=== PATIENT | female | born 1970 | race Caucasian/White ===

== ENCOUNTER 2018-04-26 19:44 | Emergency (ER) | payer OTHER ==
[~2018-04-26] VITALS: Ht 157.5 cm; Wt 136.1 kg
[~2018-04-26 19:44] MED LIST: ALBU.083IS IH; ALBU90OI INH; AMOX500 PO; ASPI81CH PO; AZIT250 PO; Bactrim Ds Tab1 EACH PO; CODGUAEL PO; Cleocin HCl150 MG PO; DOXY100 PO; Diflucan100 MG PO; FLUO10 PO; FLUT.05NI; HYDCHL25 PO; HYDR1TAB94 PO; METO50 PO; Norco 5-325 Ta1 EACH PO; Nystop60 GM TP; PRED10 PO; PRED20 PO; PROCODE120 PO; Prinivil10 MG; Protonix40 MG PO; RXCODGUASY PO; TRIHYD253A PO; TRIHYD253B PO; VENL37.5 PO; Zofran8 MG PO; [UNRECOGNIZED DRUG - REMARK]
[2018-04-26 20:05] LABS: BASOPHILS ABSOLUTE AUTO 0.03 K/mm3 (0.00-0.23); BASOPHILS PERCENT AUTO 0 % (0-2); EOSINOPHILS ABSOLUTE AUTO 0.27 K/mm3 (0.00-0.68); EOSINOPHILS PERCENT AUTO 2 % (0-6); Hematocrit 45.8 % (33.0-51.0); Hemoglobin 14.6 g/dL (11.5-16.0); IMMATURE GRAN ABSOLUTE AUTO 0.03 K/mm3 (0.00-0.10); IMMATURE GRAN PERCENT AUTO 0 % (0-1); LYMPHOCYTES ABSOLUTE AUTO 2.97 K/mm3 (0.84-5.20); LYMPHOCYTES PERCENT AUTO 25 % (21-46); MONOCYTES ABSOLUTE AUTO 0.74 K/mm3 (0.16-1.47); MONOCYTES PERCENT AUTO 6 % (4-13); Mean Corpuscular HGB 28.6 pg (26.0-34.0); Mean Corpuscular HGB Conc 31.9 g/dL (31.5-36.5); Mean Corpuscular Volume 90 fL (80-100); Mean Platelet Volume 10.1 fL (9.1-12.4); NEUTROPHILS PERCENT AUTO 66 % (41-73); Platelet Count 332 K/mm3 (150-400); RDW Coefficient Variation 12.6 % (11.7-14.2); White Blood Cell Count 11.84 K/mm3 (4.00-11.30)
[2018-04-26 20:16] LABS: International Normalized Ratio 1.01; Prothrombin Time Results 10.4 Sec (9.7-11.5)
[2018-04-26 20:41] LABS: Alanine Aminotransfer (ALT/SGP 20 U/L (12-78); Albumin, Blood 3.6 g/dL (3.4-5.0); Albumin/Globulin Ratio 0.9 (0.8-1.8); Alk Phos 110 U/L (50-136); Anion Gap 5 mmol/L (6-16); Aspartate Aminotrans (AST/SGOT 12 U/L (12-37); Bilirubin, Total 0.2 mg/dL (0.1-1.0); Blood Urea Nitrogen 24 mg/dL (8-24); Bun/Creatinine Ratio 19.8 (12.0-20.0); CO2, Blood 31 mmol/L (21-32); Calcium, Blood 9.3 mg/dL (8.5-10.1); Chloride, Blood 103 mmol/L (98-108); Creatinine, Blood 1.21 mg/dL (0.40-1.00); Globulin, Blood 4.2 g/dL (2.2-4.0); Glomerular Filtration Rate 50 (60-); Glucose, Blood 105 mg/dL (70-99); Potassium, Blood 3.8 mmol/L (3.5-5.5); Sodium, Blood 139 mmol/L (136-145); Total Protein, Blood 7.8 g/dL (6.4-8.2); Troponin I <0.015 ng/mL (0.000-0.040)
[2018-04-26] MEDS ORDERED: Metoprolol Tar100 MG PO (21:23)
[2018-04-26] MEDS ORDERED: Prozac20 MG PO (21:23)
[2018-04-26] MEDS ORDERED: Dyazide 37.5-21 EACH PO (21:24)
[2018-04-26] MEDS ORDERED: LOSA50 PO (21:25)
[2018-04-26] MEDS ORDERED: BUSP10 PO (21:26)
== END 2018-04-26 22:50 | disposition home or self-care (01) ==
LOC: ER 19:44
PROVIDERS: Emergency Medicine
DX: R07.9 Chest pain, unspecified (principal); I10 Essential (primary) hypertension; J45.909 Unspecified asthma, uncomplicated; Z88.8 Allergy status to other drugs, medicaments and biological substances; Z79.899 Other long term (current) drug therapy
CPT/HCPCS: 36415; 71046; 80053; 84484; 85025; 85610; 93005; 93010; 99285-25

== ENCOUNTER 2019-02-15 23:13 | Emergency (ER) | payer OTHER ==
[~2019-02-15] VITALS: Ht 160 cm; Wt 129.3 kg
[~2019-02-15 23:13] MED LIST changes: +BUSP10 PO; +Dyazide 37.5-21 EACH PO; +LOSA50 PO; +Metoprolol Tar100 MG PO; +Prozac20 MG PO
== END 2019-02-16 02:35 | disposition home or self-care (01) ==
LOC: ER 23:13
DX: S91.322A Laceration with foreign body, left foot, initial encounter (principal); Z88.2 Allergy status to sulfonamides; Z88.8 Allergy status to other drugs, medicaments and biological substances; Z79.899 Other long term (current) drug therapy; I10 Essential (primary) hypertension; J45.909 Unspecified asthma, uncomplicated; W22.8XXA Striking against or struck by other objects, initial encounter
CPT/HCPCS: 12001; 73620; 99283-25

== ENCOUNTER 2019-02-18 15:06 | Emergency (ER) | payer OTHER ==
[~2019-02-18] VITALS: Ht 160 cm; Wt 127.0 kg
== END 2019-02-18 16:22 | disposition home or self-care (01) ==
LOC: ER 15:06
DX: S91.311A Laceration without foreign body, right foot, initial encounter (principal); X58.XXXA Exposure to other specified factors, initial encounter; Z88.2 Allergy status to sulfonamides; Z88.8 Allergy status to other drugs, medicaments and biological substances; Z79.899 Other long term (current) drug therapy; I10 Essential (primary) hypertension; J45.909 Unspecified asthma, uncomplicated
CPT/HCPCS: 12001; 99282-25

== ENCOUNTER 2019-03-01 20:40 | Emergency (ER) | payer OTHER ==
[~2019-03-01] VITALS: Ht 160 cm; Wt 129.3 kg
[2019-03-01] MEDS ORDERED: KETO10 PO (21:57)
== END 2019-03-01 22:35 | disposition home or self-care (01) ==
LOC: ER 20:40
DX: M17.11 Unilateral primary osteoarthritis, right knee (principal); I10 Essential (primary) hypertension; J45.909 Unspecified asthma, uncomplicated; Z88.2 Allergy status to sulfonamides; Z79.899 Other long term (current) drug therapy
CPT/HCPCS: 73562-RT; 99283-25; A9270; A9270-GY

== ENCOUNTER → 2019-05-29 | Outpatient (CLI) | payer OTHER ==
[~2019-05-29] MED LIST changes: +KETO10 PO
[2019-05-31 15:07] LABS: HPV 16 Negative (Negative); HPV 18 Negative (Negative); HPV OTHER HR TYPES Negative (Negative)
== END | disposition home or self-care (01) ==
LOC: LAB 19:40 → LAB SHORT 19:40
PROVIDERS: Physician Assistant
DX: Z01.419 Encounter for gynecological examination (general) (routine) without abnormal findings (principal)
CPT/HCPCS: 87624; G0123

== ENCOUNTER 2019-09-27 00:17 | Emergency (ER) | payer OTHER ==
[~2019-09-27] VITALS: Ht 160 cm; Wt 145.2 kg
== END 2019-09-27 03:56 | disposition home or self-care (01) ==
LOC: ER 00:17
DX: S81.811A Laceration without foreign body, right lower leg, initial encounter (principal); J40 Bronchitis, not specified as acute or chronic; J06.9 Acute upper respiratory infection, unspecified; I10 Essential (primary) hypertension; Z88.2 Allergy status to sulfonamides; Z79.899 Other long term (current) drug therapy; W45.8XXA Other foreign body or object entering through skin, initial encounter
CPT/HCPCS: 12001; 99282

== ENCOUNTER 2019-10-06 17:28 | Emergency (ER) | payer OTHER ==
[~2019-10-06] VITALS: Ht 160 cm; Wt 145.2 kg
== END 2019-10-06 17:55 | disposition home or self-care (01) ==
LOC: ER 17:28
DX: S81.811D Laceration without foreign body, right lower leg, subsequent encounter (principal); Z88.8 Allergy status to other drugs, medicaments and biological substances; Z88.2 Allergy status to sulfonamides; Z79.899 Other long term (current) drug therapy; I10 Essential (primary) hypertension; J45.909 Unspecified asthma, uncomplicated

== ENCOUNTER 2021-12-03 05:50 | Emergency (ER) | payer OTHER ==
[~2021-12-03] VITALS: Ht 160 cm; Wt 172.4 kg
[2021-12-03] MEDS ORDERED: CARVEDILOL PO (06:37)
[2021-12-03] MEDS ORDERED: ATOR10 PO (06:37)
[2021-12-03] MEDS ORDERED: METFORMIN HCL500 M3 PO (06:37)
[2021-12-03] MEDS ORDERED: SOAANZ20 MG PO (06:37)
[2021-12-03] MEDS ORDERED: TOPI100 (06:38)
[2021-12-03] MEDS ORDERED: ALLEGRA ALLERGY60 MG PO (07:07)
[2021-12-03] MEDS ORDERED: Mupirocin22 GM TOP (07:07)
== END 2021-12-03 07:34 | disposition home or self-care (01) ==
LOC: ER 05:50
DX: R21 Rash and other nonspecific skin eruption (principal); I11.0 Hypertensive heart disease with heart failure; I50.9 Heart failure, unspecified; E11.9 Type 2 diabetes mellitus without complications; Z88.2 Allergy status to sulfonamides; Z88.8 Allergy status to other drugs, medicaments and biological substances
CPT/HCPCS: 99282

== ENCOUNTER 2022-03-14 20:56 | Emergency (ER) | payer OTHER ==
[~2022-03-14] VITALS: Ht 160 cm; Wt 158.8 kg
[~2022-03-14 20:56] MED LIST changes: +ALLEGRA ALLERGY60 MG PO; +ATOR10 PO; +CARVEDILOL PO; +METFORMIN HCL500 M3 PO; +Mupirocin22 GM TOP; +SOAANZ20 MG PO; +TOPI100
[2022-03-14 21:43] LABS: BASOPHILS ABSOLUTE AUTO 0.03 K/mm3 (0.00-0.23); BASOPHILS PERCENT AUTO 0 % (0-2); EOSINOPHILS ABSOLUTE AUTO 0.24 K/mm3 (0.00-0.68); EOSINOPHILS PERCENT AUTO 1 % (0-6); Hematocrit 36.6 % (33.0-51.0); Hemoglobin 11.7 g/dL (11.5-16.0); IMMATURE GRAN ABSOLUTE AUTO 0.09 K/mm3 (0.00-0.10); IMMATURE GRAN PERCENT AUTO 1 % (0-1); LYMPHOCYTES PERCENT AUTO 16 % (21-46); MONOCYTES ABSOLUTE AUTO 1.25 K/mm3 (0.16-1.47); MONOCYTES PERCENT AUTO 7 % (4-13); Mean Corpuscular HGB 29.2 pg (26.0-34.0); Mean Corpuscular Volume 91 fL (80-100); Mean Platelet Volume 9.9 fL (9.1-12.4); NEUTROPHILS ABSOLUTE AUTO 13.16 K/mm3 (1.96-9.15); NEUTROPHILS PERCENT AUTO 74 % (41-73); Platelet Count 320 K/mm3 (150-400); RDW Coefficient Variation 13.8 % (11.7-14.2); RDW Standard Deviation 46.2 fL (35.1-46.3); Red Blood Cell Count 4.01 M/mm3 (3.80-5.20); White Blood Cell Count 17.67 K/mm3 (4.00-11.30)
[2022-03-14 22:05] LABS: Albumin, Blood 2.9 g/dL (3.4-5.0); Albumin/Globulin Ratio 0.7 (0.8-1.8); Bilirubin, Total 0.5 mg/dL (0.1-1.0); Bun/Creatinine Ratio 14.3 (12.0-20.0); Calcium, Blood 8.9 mg/dL (8.5-10.1); Creatinine, Blood 1.19 mg/dL (0.40-1.00); Globulin, Blood 4.4 g/dL (2.2-4.0); Potassium, Blood 3.7 mmol/L (3.5-5.5); Total Protein, Blood 7.3 g/dL (6.4-8.2)
[2022-03-14 23:12] LABS: Source, Urine Clean Catch
[2022-03-14 23:15] LABS: Appearance, Urine Hazy (Clear); Bilirubin, Urine Neg (Neg); Blood, Urine 4+ (Neg); Glucose Qualitative, Urine Neg (Neg); Ketones, Urine Neg (Neg); Leukocyte Esterase, Urine 3+ (Neg); Nitrite, Urine Neg (Neg); Protein, Urine 3+ (Neg); Urobilinogen, Urine NORM (Normal)
[2022-03-14 23:16] LABS: Color, Urine Pale Yellow (P-Yellow)
[2022-03-14 23:22] LABS: Hyaline Casts 0-2 /lpf (0-2)
[2022-03-14 23:23] LABS: Squamous Epithelial Cells Few /hpf (Few); White Blood Cells, Urine 50-100 /hpf (0-5)
[2022-03-14 23:24] LABS: Bacteria Many /hpf
[2022-03-15] MEDS ORDERED: CEPH500 PO (00:20)
== END 2022-03-15 02:01 | disposition home or self-care (01) ==
LOC: ER 20:56
PROVIDERS: Physician Assistant
DX: N12 Tubulo-interstitial nephritis, not specified as acute or chronic (principal); I10 Essential (primary) hypertension; J45.909 Unspecified asthma, uncomplicated; E11.9 Type 2 diabetes mellitus without complications; Z88.2 Allergy status to sulfonamides; Z88.8 Allergy status to other drugs, medicaments and biological substances; Z79.899 Other long term (current) drug therapy
CPT/HCPCS: 36415; 74176; 80053; 81001; 83690; 85025; 87077; 87086; 87186; J0696; J1885; J2270; J2405; J7030

== ENCOUNTER → 2022-07-22 | Outpatient (CLI) | payer OTHER ==
[~2022-07-22] MED LIST changes: +CEPH500 PO
== END ==
LOC: LAB 08:00 → LAB SHORT 08:00
DX: B35.1 Tinea unguium (principal)
CPT/HCPCS: 88305; 88312

== ENCOUNTER 2023-08-29 03:10 | Day surgery (SDC) | payer OTHER | END 2023-08-29 23:33 | disposition home or self-care (01) | LOC: WOUND 03:10 | DX: I89.0 Lymphedema, not elsewhere classified (principal); Z88.2 Allergy status to sulfonamides; Z88.8 Allergy status to other drugs, medicaments and biological substances; L97.919 Non-pressure chronic ulcer of unspecified part of right lower leg with unspecified severity; E11.622 Type 2 diabetes mellitus with other skin ulcer; E11.22 Type 2 diabetes mellitus with diabetic chronic kidney disease; E11.42 Type 2 diabetes mellitus with diabetic polyneuropathy; I87.2 Venous insufficiency (chronic) (peripheral) | CPT/HCPCS: G0463 ==

== ENCOUNTER 2023-09-05 02:05 | Day surgery (SDC) | payer OTHER | END 2023-09-05 23:03 | disposition home or self-care (01) | LOC: WOUND 02:05 | DX: I89.0 Lymphedema, not elsewhere classified (principal); E11.622 Type 2 diabetes mellitus with other skin ulcer; E11.22 Type 2 diabetes mellitus with diabetic chronic kidney disease; E11.42 Type 2 diabetes mellitus with diabetic polyneuropathy; I87.2 Venous insufficiency (chronic) (peripheral) | CPT/HCPCS: G0463 ==

== ENCOUNTER 2023-09-14 16:49 | Emergency (ER) | payer OTHER ==
[~2023-09-14] VITALS: Ht 160 cm; Wt 167.8 kg
[2023-09-14] MEDS ORDERED: Albuterol 2.5 MG/3 ML VIAL INH SCH (17:10)
[2023-09-14 17:52] LABS: Influenza B, PCR NEGATIVE (NEGATIVE); Resp Syncytial Virus, PCR NEGATIVE (NEGATIVE); SARS-Cov-2 (COVID-19) PCR, MMC NEGATIVE (NEGATIVE)
[2023-09-14 18:16] LABS: BASOPHILS ABSOLUTE AUTO 0.02 K/mm3 (0.00-0.23); BASOPHILS PERCENT AUTO 0 % (0-2); EOSINOPHILS ABSOLUTE AUTO 0.36 K/mm3 (0.00-0.68); EOSINOPHILS PERCENT AUTO 5 % (0-6); Hematocrit 41.3 % (33.0-51.0); Hemoglobin 12.6 g/dL (11.5-16.0); IMMATURE GRAN ABSOLUTE AUTO 0.03 K/mm3 (0.00-0.10); IMMATURE GRAN PERCENT AUTO 0 % (0-1); LYMPHOCYTES ABSOLUTE AUTO 1.44 K/mm3 (0.84-5.20); LYMPHOCYTES PERCENT AUTO 20 % (21-46); MONOCYTES ABSOLUTE AUTO 0.85 K/mm3 (0.16-1.47); MONOCYTES PERCENT AUTO 12 % (4-13); Mean Corpuscular HGB 27.3 pg (26.0-34.0); Mean Corpuscular HGB Conc 30.5 g/dL (31.5-36.5); Mean Corpuscular Volume 89 fL (80-100); Mean Platelet Volume 9.5 fL (9.1-12.4); NEUTROPHILS ABSOLUTE AUTO 4.59 K/mm3 (1.96-9.15); NEUTROPHILS PERCENT AUTO 63 % (41-73); Platelet Count 286 K/mm3 (150-400); RDW Coefficient Variation 15.1 % (11.7-14.2); Red Blood Cell Count 4.62 M/mm3 (3.80-5.20); White Blood Cell Count 7.29 K/mm3 (4.00-11.30)
[2023-09-14 18:29] LABS: Influenza A, PCR POSITIVE (NEGATIVE)
[2023-09-14 18:36] LABS: Alanine Aminotransfer (ALT/SGP 20 U/L (12-78); Albumin/Globulin Ratio 0.7 (0.8-1.8); Alk Phos 136 U/L (50-136); Anion Gap Unable to Calculate mmol/L (6-16); Aspartate Aminotrans (AST/SGOT 18 U/L (12-37); Bilirubin, Total 0.1 mg/dL (0.1-1.0); Blood Urea Nitrogen 14 mg/dL (8-24); Bun/Creatinine Ratio 13.3 (12.0-20.0); CO2, Blood 33 mmol/L (21-32); Calcium, Blood 9.2 mg/dL (8.5-10.1); Chloride, Blood 108 mmol/L (98-108); Creatinine, Blood 1.05 mg/dL (0.40-1.00); Globulin, Blood 4.5 g/dL (2.2-4.0); Glomerular Filtration Rate 63 (60-); Glucose, Blood 124 mg/dL (70-99); Potassium, Blood 4.1 mmol/L (3.5-5.5); Sodium, Blood 139 mmol/L (136-145); Total Protein, Blood 7.5 g/dL (6.4-8.2)
[2023-09-14 19:42] VITALS: BP 158/78
== END 2023-09-14 19:56 | disposition home or self-care (01) ==
LOC: ER 16:49
PROVIDERS: Student in an Organized Health Care Education/Training Program
DX: J11.1 Influenza due to unidentified influenza virus with other respiratory manifestations (principal); I12.9 Hypertensive chronic kidney disease with stage 1 through stage 4 chronic kidney disease, or unspecified chronic kidney disease; J45.909 Unspecified asthma, uncomplicated; E11.22 Type 2 diabetes mellitus with diabetic chronic kidney disease; N18.9 Chronic kidney disease, unspecified; J44.9 Chronic obstructive pulmonary disease, unspecified; Z88.8 Allergy status to other drugs, medicaments and biological substances; Z88.2 Allergy status to sulfonamides; Z79.899 Other long term (current) drug therapy; Z79.84 Long term (current) use of oral hypoglycemic drugs
CPT/HCPCS: 0241U; 71046; 80053; 83880; 85025; 93005; 93010; 94640; 94664; 99285-25

== ENCOUNTER 2023-09-19 21:27 | Emergency (ER) | payer OTHER ==
[~2023-09-19] VITALS: Ht 160 cm; Wt 163.3 kg
[2023-09-19 22:15] LABS: BASOPHILS ABSOLUTE AUTO 0.02 K/mm3 (0.00-0.23); BASOPHILS PERCENT AUTO 0 % (0-2); EOSINOPHILS ABSOLUTE AUTO 0.38 K/mm3 (0.00-0.68); EOSINOPHILS PERCENT AUTO 4 % (0-6); Hematocrit 40.7 % (33.0-51.0); Hemoglobin 12.5 g/dL (11.5-16.0); IMMATURE GRAN ABSOLUTE AUTO 0.03 K/mm3 (0.00-0.10); IMMATURE GRAN PERCENT AUTO 0 % (0-1); LYMPHOCYTES ABSOLUTE AUTO 2.25 K/mm3 (0.84-5.20); LYMPHOCYTES PERCENT AUTO 26 % (21-46); MONOCYTES ABSOLUTE AUTO 0.56 K/mm3 (0.16-1.47); MONOCYTES PERCENT AUTO 6 % (4-13); Mean Corpuscular HGB 27.3 pg (26.0-34.0); Mean Corpuscular HGB Conc 30.7 g/dL (31.5-36.5); Mean Corpuscular Volume 89 fL (80-100); Mean Platelet Volume 9.5 fL (9.1-12.4); NEUTROPHILS ABSOLUTE AUTO 5.49 K/mm3 (1.96-9.15); NEUTROPHILS PERCENT AUTO 63 % (41-73); Platelet Count 281 K/mm3 (150-400); RDW Coefficient Variation 14.6 % (11.7-14.2); RDW Standard Deviation 47.4 fL (35.1-46.3); Red Blood Cell Count 4.58 M/mm3 (3.80-5.20); White Blood Cell Count 8.73 K/mm3 (4.00-11.30)
[2023-09-19] MEDS ORDERED: MethylPREDNISolone Sod Succ 125 MG Vial IV ONE (22:40)
[2023-09-19] MEDS ORDERED: Ipratropium/Albuterol SulF 2.5-0.5MG/3 ML Amp INH ONE (22:40)
[2023-09-19 22:56] LABS: Alanine Aminotransfer (ALT/SGP 17 U/L (12-78); Albumin, Blood 2.9 g/dL (3.4-5.0); Albumin/Globulin Ratio 0.7 (0.8-1.8); Alk Phos 123 U/L (50-136); Anion Gap Unable to Calculate mmol/L (6-16); Aspartate Aminotrans (AST/SGOT 16 U/L (12-37); Bilirubin, Total 0.2 mg/dL (0.1-1.0); Blood Urea Nitrogen 13 mg/dL (8-24); Bun/Creatinine Ratio 13.7 (12.0-20.0); CO2, Blood 38 mmol/L (21-32); Calcium, Blood 8.9 mg/dL (8.5-10.1); Chloride, Blood 106 mmol/L (98-108); Creatinine, Blood 0.95 mg/dL (0.40-1.00); Globulin, Blood 4.3 g/dL (2.2-4.0); Glomerular Filtration Rate 71 (60-); Glucose, Blood 144 mg/dL (70-99); Potassium, Blood 3.9 mmol/L (3.5-5.5); Sodium, Blood 140 mmol/L (136-145); Total Protein, Blood 7.2 g/dL (6.4-8.2)
[2023-09-19 23:45] VITALS: BP 187/97
[2023-09-19] MEDS ORDERED: Cephalexin Monohydrate 500 MG Cap PO ONE (23:55)
[2023-09-19] MEDS ORDERED: CEPH500 PO (23:58)
[2023-09-20] MEDS ORDERED: PRED20 PO (00:12)
== END 2023-09-20 00:14 | disposition home or self-care (01) ==
LOC: ER 21:27
PROVIDERS: Emergency Medicine
DX: J45.901 Unspecified asthma with (acute) exacerbation (principal); K12.2 Cellulitis and abscess of mouth; Z88.8 Allergy status to other drugs, medicaments and biological substances; Z88.2 Allergy status to sulfonamides; Z79.899 Other long term (current) drug therapy; Z79.84 Long term (current) use of oral hypoglycemic drugs; I12.9 Hypertensive chronic kidney disease with stage 1 through stage 4 chronic kidney disease, or unspecified chronic kidney disease; E11.22 Type 2 diabetes mellitus with diabetic chronic kidney disease; J44.9 Chronic obstructive pulmonary disease, unspecified; N18.9 Chronic kidney disease, unspecified; E66.9 Obesity, unspecified
CPT/HCPCS: 80053; 85025; 94640; 94664; 96374; 99285-25; A9270; J2930

== ENCOUNTER 2023-09-26 08:00 | Day surgery (SDC) | payer OTHER | END 2023-09-27 22:35 | disposition home or self-care (01) | LOC: WOUND 08:00 | DX: I89.0 Lymphedema, not elsewhere classified (principal); L03.115 Cellulitis of right lower limb; E11.42 Type 2 diabetes mellitus with diabetic polyneuropathy; E11.22 Type 2 diabetes mellitus with diabetic chronic kidney disease; L97.919 Non-pressure chronic ulcer of unspecified part of right lower leg with unspecified severity ==

== ENCOUNTER 2023-09-28 01:09 | Day surgery (SDC) | payer OTHER ==
[2023-09-28] MEDS ORDERED: Triamcinolone Acet 0.1% Cream 15 gm ONE (12:15)
== END 2023-09-28 22:49 | disposition home or self-care (01) ==
LOC: WOUND 01:09
DX: E11.622 Type 2 diabetes mellitus with other skin ulcer (principal); L97.919 Non-pressure chronic ulcer of unspecified part of right lower leg with unspecified severity; E11.22 Type 2 diabetes mellitus with diabetic chronic kidney disease; E11.42 Type 2 diabetes mellitus with diabetic polyneuropathy; I87.2 Venous insufficiency (chronic) (peripheral)
CPT/HCPCS: A9270

== ENCOUNTER 2023-11-10 02:18 | Day surgery (SDC) | payer OTHER ==
[2023-11-10] MEDS ORDERED: Triamcinolone Acet 0.1% Cream 15 gm ONE (08:51)
== END 2023-11-10 22:56 | disposition home or self-care (01) ==
LOC: WOUND 02:18
PROC: 5A02115 Assistance with Cardiac Output using Pulsatile Compression, Intermittent (ICD-10-PCS; principal; 2023-11-10)
DX: L97.919 Non-pressure chronic ulcer of unspecified part of right lower leg with unspecified severity (principal); E11.22 Type 2 diabetes mellitus with diabetic chronic kidney disease; E11.42 Type 2 diabetes mellitus with diabetic polyneuropathy; I87.2 Venous insufficiency (chronic) (peripheral)
CPT/HCPCS: A9270

== ENCOUNTER 2023-11-24 04:43 | Day surgery (SDC) | payer OTHER ==
[2023-11-24] MEDS ORDERED: Triamcinolone Acet 0.1% Cream 15 gm ONE (13:35)
== END 2023-11-24 22:51 | disposition home or self-care (01) ==
LOC: WOUND 04:43
DX: L97.919 Non-pressure chronic ulcer of unspecified part of right lower leg with unspecified severity (principal); E11.22 Type 2 diabetes mellitus with diabetic chronic kidney disease; E11.42 Type 2 diabetes mellitus with diabetic polyneuropathy; I87.2 Venous insufficiency (chronic) (peripheral)
CPT/HCPCS: A9270

== ENCOUNTER 2023-11-28 04:19 | Day surgery (SDC) | payer OTHER ==
[2023-11-28] MEDS ORDERED: Triamcinolone Acet 0.1% Cream 15 gm ONE (09:42)
== END 2023-11-28 22:54 | disposition home or self-care (01) ==
LOC: WOUND 04:19
DX: E11.622 Type 2 diabetes mellitus with other skin ulcer (principal); L97.919 Non-pressure chronic ulcer of unspecified part of right lower leg with unspecified severity; E11.22 Type 2 diabetes mellitus with diabetic chronic kidney disease; E11.42 Type 2 diabetes mellitus with diabetic polyneuropathy; I87.2 Venous insufficiency (chronic) (peripheral)
CPT/HCPCS: A9270

== ENCOUNTER 2023-12-01 02:45 | Day surgery (SDC) | payer OTHER ==
[2023-12-01] MEDS ORDERED: Triamcinolone Acet 0.1% Cream 15 gm ONE (09:47)
== END 2023-12-01 22:39 | disposition home or self-care (01) ==
LOC: WOUND 02:45
DX: S71.101A Unspecified open wound, right thigh, initial encounter (principal); X58.XXXA Exposure to other specified factors, initial encounter; I89.0 Lymphedema, not elsewhere classified; L97.919 Non-pressure chronic ulcer of unspecified part of right lower leg with unspecified severity; E11.22 Type 2 diabetes mellitus with diabetic chronic kidney disease; E11.42 Type 2 diabetes mellitus with diabetic polyneuropathy; I87.2 Venous insufficiency (chronic) (peripheral)
CPT/HCPCS: A9270

== ENCOUNTER 2023-12-08 03:20 | Day surgery (SDC) | payer OTHER ==
[2023-12-08] MEDS ORDERED: Triamcinolone Acet 0.1% Cream 15 gm ONE (15:13)
== END 2023-12-08 23:06 | disposition home or self-care (01) ==
LOC: WOUND 03:20
PROC: 5A02115 Assistance with Cardiac Output using Pulsatile Compression, Intermittent (ICD-10-PCS; principal; 2023-12-08)
DX: E11.622 Type 2 diabetes mellitus with other skin ulcer (principal); L97.919 Non-pressure chronic ulcer of unspecified part of right lower leg with unspecified severity; E11.22 Type 2 diabetes mellitus with diabetic chronic kidney disease; N18.9 Chronic kidney disease, unspecified; E11.42 Type 2 diabetes mellitus with diabetic polyneuropathy; I87.2 Venous insufficiency (chronic) (peripheral)
CPT/HCPCS: A9270

== ENCOUNTER 2023-12-12 04:08 | Day surgery (SDC) | payer OTHER | END 2023-12-12 22:46 | disposition home or self-care (01) | LOC: WOUND 04:08 | DX: I89.0 Lymphedema, not elsewhere classified (principal); L97.919 Non-pressure chronic ulcer of unspecified part of right lower leg with unspecified severity; E11.42 Type 2 diabetes mellitus with diabetic polyneuropathy; I87.2 Venous insufficiency (chronic) (peripheral); E11.22 Type 2 diabetes mellitus with diabetic chronic kidney disease; N18.9 Chronic kidney disease, unspecified ==

== ENCOUNTER 2024-01-30 02:22 | Day surgery (SDC) | payer OTHER | END 2024-01-30 23:18 | disposition home or self-care (01) | LOC: WOUND 02:22 | DX: I89.0 Lymphedema, not elsewhere classified (principal); L97.919 Non-pressure chronic ulcer of unspecified part of right lower leg with unspecified severity; E11.22 Type 2 diabetes mellitus with diabetic chronic kidney disease; E11.42 Type 2 diabetes mellitus with diabetic polyneuropathy; I87.2 Venous insufficiency (chronic) (peripheral) | CPT/HCPCS: G0463 ==

== ENCOUNTER → 2024-09-21 | Outpatient (CLI) | payer OTHER ==
[~2024-09-21] MED LIST changes: -BUSP10 PO; +BUSPIRONE HCL7.5 M1 PO; +DYAZIDE 37.5-21 EACH PO; +Diflucan150 MG PO; -Dyazide 37.5-21 EACH PO; +FLUOXETINE HCL60 MG PO; +NYAMYC15 G1 TOP; +NYSTATIN15 GM TOP; -Prozac20 MG PO; +SPIR50 PO; +STEGLATRO15 MG PO; -TOPI100; +TOPI100 PO
[2024-09-21 16:30] LABS: BASOPHILS ABSOLUTE AUTO 0.03 K/mm3 (0.00-0.23); BASOPHILS PERCENT AUTO 0 % (0-2); EOSINOPHILS ABSOLUTE AUTO 0.49 K/mm3 (0.00-0.68); EOSINOPHILS PERCENT AUTO 4 % (0-6); Hematocrit 41.2 % (33.0-51.0); Hemoglobin 12.2 g/dL (11.5-16.0); IMMATURE GRAN ABSOLUTE AUTO 0.04 K/mm3 (0.00-0.10); IMMATURE GRAN PERCENT AUTO 0 % (0-1); LYMPHOCYTES ABSOLUTE AUTO 2.14 K/mm3 (0.84-5.20); LYMPHOCYTES PERCENT AUTO 18 % (21-46); MONOCYTES ABSOLUTE AUTO 0.85 K/mm3 (0.16-1.47); MONOCYTES PERCENT AUTO 7 % (4-13); Mean Corpuscular HGB 26.3 pg (26.0-34.0); Mean Corpuscular HGB Conc 29.6 g/dL (31.5-36.5); Mean Corpuscular Volume 89 fL (80-100); Mean Platelet Volume 10.4 fL (9.1-12.4); NEUTROPHILS ABSOLUTE AUTO 8.65 K/mm3 (1.96-9.15); NEUTROPHILS PERCENT AUTO 71 % (41-73); Platelet Count 318 K/mm3 (150-400); RDW Coefficient Variation 14.6 % (11.7-14.2); RDW Standard Deviation 46.4 fL (35.1-46.3); Red Blood Cell Count 4.63 M/mm3 (3.80-5.20)
== END | disposition home or self-care (01) ==
LOC: LAB SHORT 15:27 → LAB 15:27
PROVIDERS: Family Medicine
DX: E87.79 Other fluid overload (principal); N61.0 Mastitis without abscess
CPT/HCPCS: 83880; 85025

== ENCOUNTER 2024-09-23 23:28 | Inpatient (IN) | payer OTHER ==
[~2024-09-23] VITALS: Ht 160 cm; Wt 195.7 kg
[~2024-09-23 23:28] MED LIST changes: -Diflucan150 MG PO; -NYAMYC15 G1 TOP; -NYSTATIN15 GM TOP; -SPIR50 PO; -STEGLATRO15 MG PO
[2024-09-24 00:07] LABS: Bicarbonate Venous 35.1 mmol/L (24.0-30.0); PCO2 Venous 63.7 mmHg (38-42); pH Blood Venous 7.39 (7.34-7.37)
[2024-09-24] MEDS ORDERED: Albuterol 2.5 MG/3 ML VIAL INH SCH (00:10)
[2024-09-24] MEDS ORDERED: Ipratropium Bromide INH 0.02% 0.5 mg/2.5ML Vial INH SCH (00:10)
[2024-09-24 00:15] LABS: BASOPHILS ABSOLUTE AUTO 0.02 K/mm3 (0.00-0.23); BASOPHILS PERCENT AUTO 0 % (0-2); EOSINOPHILS ABSOLUTE AUTO 0.33 K/mm3 (0.00-0.68); EOSINOPHILS PERCENT AUTO 3 % (0-6); Hematocrit 43.2 % (33.0-51.0); Hemoglobin 12.6 g/dL (11.5-16.0); IMMATURE GRAN ABSOLUTE AUTO 0.04 K/mm3 (0.00-0.10); IMMATURE GRAN PERCENT AUTO 0 % (0-1); LYMPHOCYTES ABSOLUTE AUTO 1.97 K/mm3 (0.84-5.20); LYMPHOCYTES PERCENT AUTO 18 % (21-46); MONOCYTES ABSOLUTE AUTO 0.87 K/mm3 (0.16-1.47); MONOCYTES PERCENT AUTO 8 % (4-13); Mean Corpuscular HGB 26.1 pg (26.0-34.0); Mean Corpuscular HGB Conc 29.2 g/dL (31.5-36.5); Mean Corpuscular Volume 90 fL (80-100); NEUTROPHILS ABSOLUTE AUTO 8.05 K/mm3 (1.96-9.15); NEUTROPHILS PERCENT AUTO 71 % (41-73); Platelet Count 294 K/mm3 (150-400); RDW Coefficient Variation 14.6 % (11.7-14.2); RDW Standard Deviation 47.7 fL (35.1-46.3); Red Blood Cell Count 4.82 M/mm3 (3.80-5.20); White Blood Cell Count 11.28 K/mm3 (4.00-11.30)
[2024-09-24 00:30] LABS: Albumin, Blood 3.2 g/dL (3.4-5.0); Albumin/Globulin Ratio 0.8 (0.8-1.8); Bilirubin, Total 0.3 mg/dL (0.1-1.0); Bun/Creatinine Ratio 13.8 (12.0-20.0); Calcium, Blood 9.4 mg/dL (8.5-10.1); Creatinine, Blood 0.87 mg/dL (0.40-1.00); Globulin, Blood 4.1 g/dL (2.2-4.0); Potassium, Blood 4.3 mmol/L (3.5-5.5); Total Protein, Blood 7.3 g/dL (6.4-8.2)
[2024-09-24 01:25] LABS: Influenza A, PCR NEGATIVE (NEGATIVE); Influenza B, PCR NEGATIVE (NEGATIVE); Resp Syncytial Virus, PCR NEGATIVE (NEGATIVE); SARS-Cov-2 (COVID-19) PCR, MMC NEGATIVE (NEGATIVE)
[2024-09-24] MEDS ORDERED: FLU VACC TS2024-25(6MOS UP)/PF 45 MCG/0.5 ML SYRINGE IM ONE (04:45)
[2024-09-24] MEDS ORDERED: Ondansetron 4 MG TAB PO PRN (04:45)
[2024-09-24] MEDS ORDERED: NS 1,000 ML IV SCH (05:00)
[2024-09-24] MEDS ORDERED: Azithromycin 500 MG in NS 250 ML IV SCH (05:50)
[2024-09-24] MEDS ORDERED: CefTRIAXone Sodium 2,000 MG in NS 100 ML IV SCH (06:00)
--- NOTE | 2024-09-24 06:41 | NUR ---
ASSUMPTION OF CARE/TRANSFER TO PCU PT ARRIVED TO PCU AT APPROXIMATELY 0605. PT TRANSFERED TO PCU BED VIA SLIDER SHEET. PT ANXIOUS AND TEARFUL AT TIMES. PT ORIENTED X4, POOR HISTORIAN. PT ANSWERS QUESTIONS, FOLLOWS DIRECTION WHEN PROMPTED AND IS ABLE TO MAKE HER NEEDS KNONW. PT MOVES EXTREMITIES EQUALLY BILATERALLY. HR 60-70'S SINUS, SBP 160-170'S, PT DENIES CP/PRESSURE. PT ON 4LPM VIA NC, OXYGEN SATURATION >92%. ABDOMEN ROUND, BOWEL TONES ACTIVE THROUGHOUT. PIV IN PLACE TO LAC SL. BED IN LOWEST POSITION, CALL LIGHT WITHIN REACH, CARE CONTINUES.
[2024-09-24 06:57] VITALS: BP 178/95
[2024-09-24 07:10] LABS: Albumin/Globulin Ratio 0.7 (0.8-1.8); Bilirubin, Total 0.3 mg/dL (0.1-1.0); Bun/Creatinine Ratio 15.4 (12.0-20.0); C-REACTIVE PROTEIN, EXT RANGE 3.41 mg/dL (0.000-0.300); Calcium, Blood 9.1 mg/dL (8.5-10.1); Creatinine, Blood 0.85 mg/dL (0.40-1.00); Globulin, Blood 4.3 g/dL (2.2-4.0); Potassium, Blood 4.5 mmol/L (3.5-5.5); Total Protein, Blood 7.3 g/dL (6.4-8.2)
[2024-09-24 07:15] VITALS: BP 199/106
[2024-09-24] MEDS ORDERED: Ipratropium/Albuterol SulF 2.5-0.5MG/3 ML Amp INH SCH (07:15)
[2024-09-24] MEDS ORDERED: Albuterol 2.5 MG/3 ML VIAL INH PRN (07:15)
[2024-09-24 07:37] LABS: BASOPHILS ABSOLUTE AUTO 0.02 K/mm3 (0.00-0.23); BASOPHILS PERCENT AUTO 0 % (0-2); EOSINOPHILS PERCENT AUTO 3 % (0-6); Hematocrit 42.6 % (33.0-51.0); Hemoglobin 12.2 g/dL (11.5-16.0); IMMATURE GRAN ABSOLUTE AUTO 0.04 K/mm3 (0.00-0.10); IMMATURE GRAN PERCENT AUTO 0 % (0-1); LYMPHOCYTES ABSOLUTE AUTO 2.35 K/mm3 (0.84-5.20); LYMPHOCYTES PERCENT AUTO 19 % (21-46); MONOCYTES ABSOLUTE AUTO 1.03 K/mm3 (0.16-1.47); MONOCYTES PERCENT AUTO 9 % (4-13); Mean Corpuscular HGB 26.5 pg (26.0-34.0); Mean Corpuscular HGB Conc 28.6 g/dL (31.5-36.5); Mean Corpuscular Volume 92 fL (80-100); Mean Platelet Volume 10.1 fL (9.1-12.4); NEUTROPHILS ABSOLUTE AUTO 8.41 K/mm3 (1.96-9.15); NEUTROPHILS PERCENT AUTO 69 % (41-73); Platelet Count 284 K/mm3 (150-400); RDW Coefficient Variation 14.6 % (11.7-14.2); RDW Standard Deviation 49.8 fL (35.1-46.3); Red Blood Cell Count 4.61 M/mm3 (3.80-5.20); White Blood Cell Count 12.15 K/mm3 (4.00-11.30)
[2024-09-24 07:45] VITALS: BP 202/100
[2024-09-24 08:06] VITALS: BP 159/91
[2024-09-24 09:00] VITALS: BP 149/85
[2024-09-24] MEDS ORDERED: Losartan Potassium 50 MG Tab PO SCH (09:00)
[2024-09-24] MEDS ORDERED: FLUoxetine HCL 20 MG CAP PO SCH (09:00)
[2024-09-24] MEDS ORDERED: Carvedilol 25 MG Tab PO SCH (09:00)
[2024-09-24] MEDS ORDERED: STEGLATRO15 MG PO (09:32)
[2024-09-24] MEDS ORDERED: NYAMYC15 G1 TOP (09:38)
[2024-09-24] MEDS ORDERED: NYSTATIN15 GM TOP (09:38)
[2024-09-24] MEDS ORDERED: SPIR50 PO (09:39)
[2024-09-24] MEDS ORDERED: Diflucan150 MG PO (09:44)
[2024-09-24 10:21] LABS: Base Excess Venous 15.5 mmol/L; PCO2 Venous 86.4 mmHg (38-42)
[2024-09-24] MEDS ORDERED: MethylPREDNISolone Sod Succ 125 MG Vial IV SCH (12:00)
[2024-09-24 12:39] LABS: Base Excess Venous 14.4 mmol/L; Bicarbonate Venous 35.4 mmol/L (24.0-30.0); PCO2 Venous 69.2 mmHg (38-42); pH Blood Venous 7.37 (7.34-7.37)
[2024-09-24] MEDS ORDERED: Bumetanide 0.25 MG/ML 4ML ViaL IV SCH (14:00)
[2024-09-24 15:11] LABS: Source, Urine Foley catheter
[2024-09-24 15:14] LABS: Appearance, Urine Clear (Clear); Bilirubin, Urine Neg (Neg); Blood, Urine Neg (Neg); Color, Urine Yellow (P-Yellow); Glucose Qualitative, Urine Neg (Neg); Ketones, Urine Neg (Neg); Leukocyte Esterase, Urine Neg (Neg); Nitrite, Urine Neg (Neg); Protein, Urine 3+ (Neg); Urobilinogen, Urine NORM (Normal)
[2024-09-24 15:37] LABS: Bacteria Rare /hpf; Hyaline Casts 0-2 /lpf (0-2); Red Blood Cells, Urine Not Seen /hpf (0-2); Squamous Epithelial Cells Rare /hpf (Few); White Blood Cells, Urine 0-2 /hpf (0-5)
--- NOTE | 2024-09-24 18:15 | NUR ---
EOS: PATIENT AT THE START OF SHIFT WAS VERY SOMULENT ON THE BIPAP AT 18/10 40%. MULTIPLE CHANGES TO BIPAP SETTINGS THROUGHTOUT THE DAY. FINALLY, ENDED ON AVAP SETINGS ~14/8 50%FIO2, AFTER 30 MINUTES OF THIS VBG OBTAINED WITH IMPROVEMENT TO CO2. PATIENT HAS TAIWO COOPERATIVE WITH MOST CARES. OWEVER, MOST OF THE TIME SHE IS SOMULENT, ADDITIONALLY THROUGH THE DAY SHE HAD BEEN REATINING AND UNABLE TO VOID, ORDER FOR FOELY DUE TO EXTREME DIFFICLUTY WITH PLEACEMENT (DECLINING RESPIRATORY STATUS, DECREASING BLOOD PRESSRUE AND HR) ORDER FROM HOSPITALIST, ATTEMPT TO REMOVE AFTER 48 HOURS OR SOONER DEPENDING ON PATIENT CONDITION. PATIENT RECIEVED 2mg OF BUMEX AND HOLING NS INFUSION. FAMILY AND HUSAND UPDATE MULTIPLE TIMES OF PATIENT CONIDITION AND POSSIBLE DETERIORATION. PATIENT REAMINS NPO DUE TO SOMULENT STATUS WHILE HOSPITALIST ROUNDING BOTH TIMES SHE ROUNDED. RT IN THE ROOM MULTIPLE TIMES ADJUSTING AND MONITORING RESPIRATORY STATUS. VAMSHI HAWKINS MAX 20/10 THIS AM. NO FURTHER CONCERNS AT THIS TIME FROM THIS RN AT THIS TIME.
[2024-09-24 20:00] VITALS: BP 133/72
--- NOTE | 2024-09-24 20:36 | NUR ---
ASSUMPTION NOTE; THIS RN TO ASSUME CARE. PATIENT GETTNG A BREATHNG TREATMENT DONE WITH FAMILY AT BEDSIDE. VITAL SIGNS TAKEN AND PATIENT STABLE. PATIENT DENIED CHEST PAIN/PRESSURE. PATIENT STATED SHE WAS HUNGRY AND REMINDED THAT CURRENTLY SHE IS TO HAVE NOTHING BY MOUTH DUE TO ASPIRATION RISK, WE WILL REASSESS IN THE MORNING WHEN THE DOCTOR COMES THROUGH. PATIENT PLACED ON HER BIPAP MASK, HAS BED IN LOWEST POSITION AND CALL LIGHT WITHIN REACH.
[2024-09-25] VITALS (8 sets, daily range): BP systolic 110–158; BP diastolic 63–78
[2024-09-25 05:01] LABS: Hematocrit 40.8 % (33.0-51.0); Hemoglobin 11.8 g/dL (11.5-16.0); Mean Corpuscular HGB 26.2 pg (26.0-34.0); Mean Corpuscular HGB Conc 28.9 g/dL (31.5-36.5); Mean Corpuscular Volume 91 fL (80-100); Mean Platelet Volume 10.3 fL (9.1-12.4); Platelet Count 298 K/mm3 (150-400); RDW Coefficient Variation 14.5 % (11.7-14.2); Red Blood Cell Count 4.51 M/mm3 (3.80-5.20); White Blood Cell Count 12.44 K/mm3 (4.00-11.30)
--- NOTE | 2024-09-25 05:38 | NUR ---
SHIFT SUMMARY: PATIENT IS ALERT AND ORIENTED X4 AND COOPEARTIVE WITH HER CARE. IS ABLE TO MAKE NEEDS KNOWN AND USES CALL LIGHT APPROIRATELY. ON TELE SHOWING SINUS SAMSON IN THE 50-60'S. IS SATTING >92% ON THE BIPAP WITH FIO2 AT 50%. PATIENT TOLERATED THE BIPAP ALL THROUGOUT THE NIGHT. PATIENT VITAL SIGNS STABLE THROUGHOUT THE SHIFT. FLUID ORDER WAS DISCONTINUED. PATIENT CONTINUES TO SWELL AND NIGHT RESIDENT WAS NOTIFIED OF THIS. BLOOD SUGARS THROUGHOUT THE SHIFT WERE ELEVATED BUT WELL CONTROLLED. PAIENT SLEPT THROUGH MOST OF THE SHIFT. PATIENT HAS BED IN LOWEST POSITION, CALL LIGHT WITHIN REACH AND NOT REPORTING ANY NEEDS AT THIS TIME.
[2024-09-25 05:39] LABS: Bun/Creatinine Ratio 22.6 (12.0-20.0); Calcium, Blood 8.6 mg/dL (8.5-10.1); Creatinine, Blood 0.89 mg/dL (0.40-1.00); Potassium, Blood 4.9 mmol/L (3.5-5.5)
[2024-09-25 06:13] LABS: BAND PERCENT MAN 1 % (0-8); BASOPHILS ABSOLUTE MAN 0.12 K/mm3 (0.00-0.23); BASOPHILS PERCENT MAN 1 % (0-2); EOSINOPHILS PERCENT MAN 0 % (0-6); LYMPHOCYTES ABSOLUTE MAN 0.99 K/mm3 (0.84-5.20); LYMPHOCYTES PERCENT MAN 8 % (21-46); MONOCYTES ABSOLUTE MAN 0.12 K/mm3 (0.16-1.47); MONOCYTES PERCENT MAN 1 % (4-13); NEUTROPHILS ABSOLUTE MAN 11.19 K/mm3 (1.96-9.15); SEG NEUTROPHILS PERCENT MAN 89 % (41-73); TOTAL CELLS COUNTED 100
[2024-09-25] MEDS ORDERED: Enoxaparin 40 MG/0.4 ML SYR SC SCH (09:00)
[2024-09-25] MEDS ORDERED: Carvedilol 6.25 MG Tab PO SCH (09:37)
[2024-09-25 09:41] LABS: Base Excess Venous 14.5 mmol/L; Bicarbonate Venous 35.7 mmol/L (24.0-30.0); PCO2 Venous 63.1 mmHg (38-42)
--- NOTE | 2024-09-25 10:30 | NUR ---
Pt gave verbal consent to have medications administered by nursing service administrator.
[2024-09-25 12:23] LABS: U Amphetamine Screen DETECTED; U Barbituate Screen Not Detected; U Benzodiazapine Screen Not Detected; U Buprenorphine Screen Not Detected; U Cannabinoids Screen Not Detected; U Cocaine Screen Not Detected; U Methadone Screen Not Detected; U Methamphetamine Screen DETECTED; U Opiates Screen Not Detected; U Oxycodone Screen Not Detected; U Phencyclidine Screen Not Detected
--- NOTE | 2024-09-25 13:29 | NUR ---
ASSUMPTION OF CARE: PATIENT MUCH IMPROVED FROM PREIVIOUS ASSESSMENT, ONLY NOTABLE CHANGE IS AVAP SETTINGS MINIMALLY HIGHER. DISCOLORATION TO CERVANTES TUBE FROM URINE STAIN, ASSESSING NEED DEPENDENT UPON RESPIRATORY STATUS AND MENTATION. PATIENT SUMMERFELIZY HAS IMPRVED MENTATION HAS BEEN ABLE TO PARTICIPATE SLIGHTLY MORE WITH CARE IS NOT SOLMULENT FOR THIS RN. TOLERATING BREAKS OFF AVAP AT 6L INCREASED REPOSITIONING REDNESS NOTED ON COCCYX, PATIENT AND FAMILY EDUCATED ON PLAN OF CARE. NO ACUTE CONCERNS DENIES CHEST PAIN PRESSURE OR INCREASED SOB AT REST. PATIENT ABLE TO TOLERATE MEALS AND SNACKS WELL, INFORMED NEED TO LIMIT HER ORAL INTAKE. PATIENT AGREEABLE TO PLAN.
--- NOTE | 2024-09-25 19:30 | NUR ---
ASSUMPTION NOTE: THIS RN TO ASSUME CARE OF PATIENT. PATIENT IS SITTING IN BED WATCHING TV. PATIENT VITALS TAKEN AND PATIENT STABLE. PATIENT ASKED FOR SOME YOGURT PRIOR TO PUTTING ON BIPAP MASK. HAS BED IN LOWEST POSITION AND CALL LIGHT WITHIN REACH.
--- NOTE | 2024-09-25 19:48 | NUR ---
EOS: PATIENT SLOWLY IMPROVED THROUGH THE SHIFT HAS BEEN MORE ALERT AND ORIENTED WITH DECREASED SLEEPINESS. TOLEARTING LARGER BREAKS ON NC. VERY COOPERATIVE WITH ALEE WEINSTEIN. PATIENT IMPROVED ASSESS NEED FOR CERVANTES WITH PROVIDER AND WAS REMOVED. PATIENT TOLERATED WELL. APPETITE HAS BEEN WELL, TOLERATED MEALS, FAMILY EDUCATED ON CONDITION MULTIPLE TIMES. NO ACUTE CONCNERS FROM THIS RN.
--- NOTE | 2024-09-25 21:47 | NUR ---
MD CALLED: THIS RN PLACED A CALL TO MD REGARDING NEEDIG MILES INSULIN COVERAE. PATIENT HAS A HISTORY OF TYPE TWO DIABETES & IS NOW ACHS SUGAR CHECKS. AT THE START OF SHIFT SUGAR WAS CHECKED, READING IN EMAR. MD TO PLACE SUGAR COVERAGE.
[2024-09-25] MEDS ORDERED: Insulin Glargine-Yfgn 100 Unit/mL 3 ML SYR SC SCH (22:35)
[2024-09-26 03:08] VITALS: BP 138/77
[2024-09-26 04:14] LABS: BASOPHILS ABSOLUTE AUTO 0.01 K/mm3 (0.00-0.23); BASOPHILS PERCENT AUTO 0 % (0-2); EOSINOPHILS PERCENT AUTO 0 % (0-6); Hematocrit 39.2 % (33.0-51.0); Hemoglobin 11.8 g/dL (11.5-16.0); IMMATURE GRAN ABSOLUTE AUTO 0.08 K/mm3 (0.00-0.10); IMMATURE GRAN PERCENT AUTO 1 % (0-1); LYMPHOCYTES ABSOLUTE AUTO 1.14 K/mm3 (0.84-5.20); LYMPHOCYTES PERCENT AUTO 7 % (21-46); MONOCYTES PERCENT AUTO 2 % (4-13); Mean Corpuscular HGB 26.5 pg (26.0-34.0); Mean Corpuscular HGB Conc 30.1 g/dL (31.5-36.5); Mean Corpuscular Volume 88 fL (80-100); Mean Platelet Volume 10.3 fL (9.1-12.4); NEUTROPHILS ABSOLUTE AUTO 15.71 K/mm3 (1.96-9.15); NEUTROPHILS PERCENT AUTO 91 % (41-73); Platelet Count 330 K/mm3 (150-400); RDW Coefficient Variation 14.6 % (11.7-14.2); RDW Standard Deviation 46.5 fL (35.1-46.3); Red Blood Cell Count 4.45 M/mm3 (3.80-5.20); White Blood Cell Count 17.34 K/mm3 (4.00-11.30)
[2024-09-26 04:37] LABS: Bun/Creatinine Ratio 32.5 (12.0-20.0); Creatinine, Blood 1.14 mg/dL (0.40-1.00); Potassium, Blood 4.7 mmol/L (3.5-5.5)
--- NOTE | 2024-09-26 05:43 | NUR ---
SHIFT SUMMARY: PATIENT IS ALERT AND ORIENTED X4 AND ABLE TO MAKE NEEDS KNOWN. ON TELE WITH NO EVENTS. SATTING >92% ON THE BIPAP WITH FIO2 AT 50%. PATIENT WORE THE BIPAP ALL NIGHT AND CAME OFF FOR A SNACK. PATIENT SUGARS WERE ELVATED AT THE START OF SHIFT, THIS RN GOT INSULIN COVERAGE AND ADMINISTERED LONG ACTING AT 10UNITS PER EMAR. PATIENT WAS ABLE TO REST THROUGHOUT SHIFT. PATIENT HAS CALL LIGHT WITHIN REACH, BED IN LOWEST POSITION & NOT REPORTING ANY NEEDS AT THIS TIME.
[2024-09-26] MEDS ORDERED: Insulin Human Lispro 100 Units/ML 3ML Syringe SC SCH ×2 (07:30)
[2024-09-26 08:09] VITALS: BP 142/85
--- NOTE | 2024-09-26 09:55 | NUR ---
Pt. is awake in bed when she welcomes my visit. Pt. displaayed evidence of some aniety as I facilitated a life review. Listened with empathy and a calming presence. Considered matters of markos and belief. Pt. displayed happy emotions and lower stress. Prayed for the Pt. Pt. verbalized gratitude for the spiritual care visit and welcomed this head rigger to return.
[2024-09-26 12:21] VITALS: BP 136/73
[2024-09-26] MEDS ORDERED: Nystatin 100,000 Unit/GM CREAM 15 GM TOP PRN (13:00)
[2024-09-26] MEDS ORDERED: Miconazole Nitrate 2% 85 GM PWD TOP PRN (13:00)
[2024-09-26] MEDS ORDERED: Spironolactone 50 MG Tab PO SCH (13:55)
[2024-09-26] MEDS ORDERED: Triamter/HCthiazide 37.5/25 MG 1 Tab PO SCH (13:55)
[2024-09-26 15:58] VITALS: BP 132/71
--- NOTE | 2024-09-26 18:09 | NUR ---
PT SUMMARY; PT TRANSITIONED TO MEDICAL STATUS WITH TELE. VITALS HRR SB 55-60'S, SBP 130'S, SATS ABOVE 90% ON 6OL OF O2, BIPAP WHEN SLEEPING, AFEBRILE. PT HAS BEEN ABLE TO SCOOT SELF UP IN BED TO REPOISITON. PHYSICAL THERAPIST WAS NOT ABLE TO WORK WITH PT BARIATRIC BED NOT APPROPRIATE FOR PTHERAPIST TO WORK WITH PT, PLAN TO GET PT UP IN CHAIR TOMORROW VIA LIFT. PT ABLE TO TOLERATE FOOD. PUREWICK IN PLACE PT VOIDED ABOUT 1500MLS OUT. PT WAS ALSO PLACED ON FLUID RESTRICTION 2000MLS/DAY PT MADE AWARE WELL. DAUGHTER CAME IN TO VISIT WAS GIVEN UPDATE REGARDING PT'S STATUS, DAUGHTER HAS SOME CONCERNS FOR DISCHARGE AWAITING FOR PT RECOMMENDATIONS AT THIS TIME. WILL DISCUSS PLAN AGAIN IN AM. PT HAS BEEN RESTING IN BED T/O SHIFT, NO OTHER CONCERNS AT THIS TIME. PT HAS BEEN CALLING APPROPRIATELY WILL REPORT TO ONCOMING SHIFT
[2024-09-26 19:49] VITALS: BP 165/72
[2024-09-26] MEDS ORDERED: BusPIRone HCl 5 MG Tab PO SCH (21:00)
[2024-09-26] MEDS ORDERED: MethylPREDNISolone Sod Succ 125 MG Vial IV SCH (21:00)
[2024-09-26] MEDS ORDERED: Topiramate 100 MG Tab PO SCH (21:00)
[2024-09-27 05:02] VITALS: BP 143/81
[2024-09-27 05:33] LABS: BASOPHILS ABSOLUTE AUTO 0.02 K/mm3 (0.00-0.23); BASOPHILS PERCENT AUTO 0 % (0-2); EOSINOPHILS PERCENT AUTO 0 % (0-6); Hematocrit 40.7 % (33.0-51.0); Hemoglobin 12.2 g/dL (11.5-16.0); IMMATURE GRAN ABSOLUTE AUTO 0.08 K/mm3 (0.00-0.10); IMMATURE GRAN PERCENT AUTO 1 % (0-1); LYMPHOCYTES ABSOLUTE AUTO 1.44 K/mm3 (0.84-5.20); LYMPHOCYTES PERCENT AUTO 9 % (21-46); MONOCYTES ABSOLUTE AUTO 0.46 K/mm3 (0.16-1.47); MONOCYTES PERCENT AUTO 3 % (4-13); Mean Corpuscular HGB 26.2 pg (26.0-34.0); Mean Corpuscular Volume 88 fL (80-100); Mean Platelet Volume 10.3 fL (9.1-12.4); NEUTROPHILS ABSOLUTE AUTO 13.33 K/mm3 (1.96-9.15); NEUTROPHILS PERCENT AUTO 87 % (41-73); Platelet Count 325 K/mm3 (150-400); RDW Coefficient Variation 14.8 % (11.7-14.2); Red Blood Cell Count 4.65 M/mm3 (3.80-5.20); White Blood Cell Count 15.33 K/mm3 (4.00-11.30)
[2024-09-27 06:06] LABS: Bun/Creatinine Ratio 38.9 (12.0-20.0); Calcium, Blood 8.9 mg/dL (8.5-10.1); Creatinine, Blood 1.08 mg/dL (0.40-1.00); Potassium, Blood 4.7 mmol/L (3.5-5.5)
--- NOTE | 2024-09-27 06:09 | NUR ---
SHIFT SUMMARY A/OX4, OBEYS COMMANDS, VERBALIZES NEEDS. SLEPT THROUGH THE MAJORITY OF THE SHIFT. ON 6L NC WHEN AWAKE, ON AVAP 40% WHILE ASLEEP. ON 2L PRN BASELINE. PT TOLERATED BIPAP WELL AND WORE THROUGH THE NIGHT. BP ELEVATED AT TIMES. HR 50 S-60 S. PULSES FAINTLY PALPABLE DUE TO EDEMA. CAPILLARY REFILL LESS THAN 3 SECONDS. PT DENIES CHEST PAIN OR PRESSURE. ON BEDREST AT THIS TIME DUE TO INCREASED OXYGEN DEMAND BUT ABLE TO REPOSITION SELF IN BED. PUREWICK IN PLACE AND DRAINING YELLOW URINE TO SUCTION. NO ACUTE EVENTS THIS SHIFT
[2024-09-27 07:42] VITALS: BP 139/79
[2024-09-27] MEDS ORDERED: Triamter/HCthiazide 37.5/25 MG 1 Tab PO SCH (09:00)
[2024-09-27] MEDS ORDERED: Spironolactone 50 MG Tab PO SCH (09:00)
[2024-09-27 13:57] VITALS: BP 146/79
--- NOTE | 2024-09-27 15:30 | NUR ---
PT SUMMARY; PATIENT IS A & O X 4. ASSISTED TO CHAIR AND HAD LUNCH ON THE CHAIR AFTER WORKING WITH PHYSICAL THERAPY. OXYGEN SATURATION MAINTAINED ABOVE 90 DURING TRANSFER AND PATIENT USED NC WHEN EATING BREAKFAST AND LUNCH AT 5 LITERS. PATIENT WAS BACK TO BIPAP WHEN LYING IN BED.PATIENT'S DAUGHTER VISITED DURING LUNCH AND WAS UPDATED ABOUT PATIENTS CAREPLAN. CURENTLY PLACED ON HER HOME CPAP TRIAL BY RESPIRATORY THERAPY. AVAPS 40%, SPO2 95%. RESTING WITH NO SIGNS OF DISTRESS. PHYSCAL THERAPY RECOMENDED HOME WITH HOME HEALTH AND HOME O2 EVALUATION.COMPLIANT WITH FLUID RESTRICTION.
[2024-09-27 16:34] VITALS: BP 148/82
[2024-09-27] MEDS ORDERED: Bumetanide 0.25 MG/ML 4ML ViaL IV SCH (17:00)
--- NOTE | 2024-09-27 18:00 | NUR ---
TRANSFER NOTE/ SHIFT SUMMARY PATIENT A/OX4. PATIENT TEARFUL AFTER TRANSFER TO THIS FLOOR AND STATES IS HAVING "FAMILY DRAMA". PATIENT REQUESTING PRIVACY WITH FAMILY AT BEDSIDE, AT THE TIME. PUREWICK IN PLACE. [address] USE IN PL[address], HOME CPAP AT BEDSIDE AND BIPOAP AT BEDSIDE WELL. PATIENT ORIENTED TO ROOM AND CALL LIGHT SYSTEM. NO OTHER CONCERNS AT THIS TIME. REPORT GIVEN TO KARLY GONZALEZ RN.
[2024-09-27 20:39] VITALS: BP 151/72
[2024-09-28] VITALS (7 sets, daily range): BP systolic 128–174; BP diastolic 56–88
[2024-09-28] MEDS ORDERED: HydrALAZINE HCl 20 MG / ML 1ML Vial IV PRN (01:15)
[2024-09-28] MEDS ORDERED: NS 250 ML IV PRN (01:25)
--- NOTE | 2024-09-28 05:04 | NUR ---
SHIFT SUMMARY PT A&Ox4 AND PLEASANT. NO C/O PAIN. RT AT BEDSIDE TO SET UP CPAP WITH A 5L BLEED IN, PT TOLERATED WELL AND USED T/O NIGHT. CONTINIOUS PULSE OX IN PLACE AND PT DESATS QUICKLY WITHOUT OXYGEN. PURWICK IN PLACE AND DRAINING LIGHT YELLOW URINE. IV ABX GIVEN PER EMAR. PT SINUS SAMSON IN THE 50's. VSS. PT CALLS APPROPRIATLY. BED IN LOWEST POSITION AND CALL LIGHT IN REACH.
[2024-09-28 07:23] LABS: Albumin, Blood 2.7 g/dL (3.4-5.0); Anion Gap 10 mmol/L (3-11); Blood Urea Nitrogen 42 mg/dL (8-24); CO2, Blood 35 mmol/L (21-32); Chloride, Blood 96 mmol/L (98-108); Glomerular Filtration Rate 67 (60-); Glucose, Blood 150 mg/dL (70-99); Magnesium, Blood 2.4 mg/dL (1.6-2.4); Phosphorus, Blood 4.4 mg/dL (2.5-4.9); Potassium, Blood 4.4 mmol/L (3.5-5.5); Sodium, Blood 137 mmol/L (136-145)
[2024-09-28 10:57] LABS: PCO2 Arterial 59.9 mmHg (35-45); PO2 Arterial 66.2 mmHg (80-100); pH Blood Arterial 7.41 (7.35-7.45)
[2024-09-28] MEDS ORDERED: Polyethylene Glycol 3350 17 gm PO SCH (12:00)
--- NOTE | 2024-09-28 19:24 | NUR ---
PT A&OX4, VSS, 5L O2 VIA NC WHILE AWAKE, CPAP WITH 5L O2 WHEN SLEEPING, SB IN 50S ON TELE. BUMEX GIVEN X2 WITH GOOD URINE OUTPUT IN PUREWIK. PT COOPERATIVE WITH CARE, BED IN LOW LOCKED POSITION, CALL LIGHT IN REACH, CPAP ON AT THIS TIME.
[2024-09-28] MEDS ORDERED: Lactobacil 2-S.Thermo-Bifido 1 1 Cap PO SCH (21:00)
[2024-09-29 00:01] VITALS: BP 138/68
[2024-09-29 04:36] VITALS: BP 148/82
--- NOTE | 2024-09-29 04:50 | NUR ---
SHIFT SUMMARY PT ALERT ORIENTED X 4 ABLE TO VERBALIZE NEEDS. REMAINS ON 5 L VIA CPAP AY NIGHT AND 5 L VIA NC DURING DAY. SHE IS INCONTINENT WITH A PUREWICK DRAINING YELLOW URINE. REMAINS ON ROCEPHIN QDAY FS DONE AC AND HS WAS 143. NO C/O PAIN THIS SHIFT. DID C/O HAVING A HARD TIME SLEEPING. REMAINS ON A CONTINUOUS PULSE OX. SHE HAS A POWER GLIDE TO HER MAX. SHES ABLE TO TURN HERSELF IN THE BED. VSS SATTING AT 93%. SHE HAS REDNESS UNDER HER BREASTS AND PANNUS. AREA WAS CLEANED AND POWDER WAS APPLIED. RESTING IN BED AT THIS TIME WITH CALL LIGHT IN REACH
[2024-09-29 06:22] LABS: Hematocrit 42.4 % (33.0-51.0); Mean Corpuscular HGB 26.4 pg (26.0-34.0); Mean Corpuscular HGB Conc 30.7 g/dL (31.5-36.5); Mean Corpuscular Volume 86 fL (80-100); Mean Platelet Volume 10.1 fL (9.1-12.4); Platelet Count 330 K/mm3 (150-400); RDW Coefficient Variation 14.4 % (11.7-14.2); RDW Standard Deviation 45.7 fL (35.1-46.3); Red Blood Cell Count 4.92 M/mm3 (3.80-5.20); White Blood Cell Count 13.67 K/mm3 (4.00-11.30)
[2024-09-29 06:49] LABS: Albumin, Blood 2.7 g/dL (3.4-5.0); Anion Gap 9 mmol/L (3-11); Blood Urea Nitrogen 42 mg/dL (8-24); Bun/Creatinine Ratio 41.6 (12.0-20.0); CO2, Blood 36 mmol/L (21-32); Calcium, Blood 8.8 mg/dL (8.5-10.1); Chloride, Blood 95 mmol/L (98-108); Creatinine, Blood 1.01 mg/dL (0.40-1.00); Glomerular Filtration Rate 66 (60-); Glucose, Blood 163 mg/dL (70-99); Phosphorus, Blood 4.1 mg/dL (2.5-4.9); Potassium, Blood 4.5 mmol/L (3.5-5.5); Sodium, Blood 135 mmol/L (136-145)
[2024-09-29 07:21] VITALS: BP 155/67
[2024-09-29] MEDS ORDERED: Acetaminophen 500 MG Tab PO PRN (09:30)
[2024-09-29] MEDS ORDERED: Melatonin 5 MG Tablet PO PRN (09:30)
[2024-09-29] MEDS ORDERED: Sennosides 8.6 MG Tab PO PRN (09:30)
[2024-09-29] MEDS ORDERED: Polyethylene Glycol 3350 17 gm PO PRN (09:35)
[2024-09-29 12:20] VITALS: BP 141/71
[2024-09-29] MEDS ORDERED: Ipratropium/Albuterol SulF 2.5-0.5MG/3 ML Amp INH SCH (15:15)
[2024-09-29 16:32] VITALS: BP 143/70
--- NOTE | 2024-09-29 17:31 | NUR ---
SUMMARY PT ALERT AND ORIENTED X4, SBA WITH 4 WHEEL WALKER. PT UP TO CHAIR FOR BREAKFAST AND UP TO BATHROOM FOR TOILETING NEEDS. PT REPORTS BEING WORN OUT. 5L NC AND 5L BLEED IN WITH CPAP. PT REPORTS NOT FEELING WELL IN GENERAL. LARGE BM THIS SHIFT. ABLE TO EXPRESS NEEDS. DENIES CHEST PAIN. SOB WITH AMBULATION
[2024-09-29] MEDS ORDERED: Bumetanide 1 MG Tab PO SCH (18:00)
[2024-09-29 22:02] VITALS: BP 140/62
[2024-09-30 00:22] VITALS: BP 138/64
--- NOTE | 2024-09-30 03:51 | NUR ---
SHIFT SUMMARY PT ALERT ORIENTED ABLE TO CALL APPROPRIATELY. SHE GOT UP AND AMBULATED TO THE BATHROOM AND DID WELL. REMAINS ON 5L VIA NC DURING DAY AND 5L VIA BIPAP MASK. CONTINES ON A CONTINUOUS PULSE OX. MFS WAS 193 LAST NIGHT. HE C/O DIFFICULTY SLEEPING AND I GAVE HER A MELATONIN WHICH HELPED HER SLEEP MOST OF THE NIGHT. CONTINUES ON TELEMETRY AT SINUS SAMSON AT 50. CONTINUES ON ROCEPHIN QDAY FOR PNEUMONIA.HE HAS REDNESS TO ABDOMEN FOLDS
[2024-09-30 04:38] VITALS: BP 139/72
[2024-09-30 07:54] LABS: Hematocrit 45.4 % (33.0-51.0); Hemoglobin 13.6 g/dL (11.5-16.0); Mean Corpuscular HGB 26.1 pg (26.0-34.0); Mean Corpuscular Volume 87 fL (80-100); Mean Platelet Volume 10.2 fL (9.1-12.4); Platelet Count 343 K/mm3 (150-400); RDW Coefficient Variation 14.5 % (11.7-14.2); Red Blood Cell Count 5.21 M/mm3 (3.80-5.20)
[2024-09-30 08:13] LABS: Albumin, Blood 2.7 g/dL (3.4-5.0); Albumin/Globulin Ratio 0.6 (0.8-1.8); Bilirubin, Total 0.2 mg/dL (0.1-1.0); Bun/Creatinine Ratio 43.8 (12.0-20.0); Calcium, Blood 8.8 mg/dL (8.5-10.1); Creatinine, Blood 0.98 mg/dL (0.40-1.00); Globulin, Blood 4.3 g/dL (2.2-4.0); Potassium, Blood 4.2 mmol/L (3.5-5.5)
[2024-09-30 16:17] VITALS: BP 157/100
[2024-09-30] MEDS ORDERED: Ipratropium 0.06% Nasal Spray SCH (17:00)
--- NOTE | 2024-09-30 17:22 | NUR ---
SUMMARY NO ACUTE CHANGES THIS SHIFT. PT HAD COUGH FIT WITH SCANT AMOUNT OF BLOOD IN SPUTUM. RESPIRATORY CULTURE PENDING. PT UP TO CHAIR FOR SEVERAL HOURS TODAY. REPORTS NOT FEELING WELL. SBA WITH FWW TO BATHROOM.
[2024-09-30] MEDS ORDERED: Ipratropium Bromide 0.03% Nasal Spray SCH (18:00)
[2024-09-30 19:28] VITALS: BP 141/71
[2024-09-30 23:47] VITALS: BP 158/82
--- NOTE | 2024-10-01 04:01 | NUR ---
SHIFT SUMMARY PT ALERT ORIENTED X 4 CALLS APPROPRIATELY. GETS UP TO THE BATHROOM WITH SBA AND WALKER. SHES DOING MUCH BETTER WITH TRANSFERRING. REMAINS ON 5L VIA NC WHILE AWAKLE AND 5 LITERS BLEEDING INTO HER CPAP AT NIGHT. REMAINS ON TELEMETRY AT SINUS SAMSON AT A RATE OF 52. REMAINS ON ROCEPHIN ORDERED FOR PNEUMONIA. CONTINUES ON FS AC AND HS WAS 186. SHE HAS REDNESS UNDER HER BREASTS AND PANNUS CONTINUES WITH POWDER TO THE AREAS. SHE ASKED FOR A MELATONIN TO HELP HER SLEEP AND SLEPT WELL MOST OF THE NIGHT WITH IT. SHE HAS A POWER GLIDE TO HER MAX THAT WE USE FOR HER ANTIBIOTICS. SHES RESTING IN BED AT THIS TIME WITH CALL LIGHT IN REACH
[2024-10-01 05:07] LABS: BASOPHILS ABSOLUTE AUTO 0.02 K/mm3 (0.00-0.23); BASOPHILS PERCENT AUTO 0 % (0-2); EOSINOPHILS ABSOLUTE AUTO 0.03 K/mm3 (0.00-0.68); EOSINOPHILS PERCENT AUTO 0 % (0-6); Hematocrit 44.3 % (33.0-51.0); Hemoglobin 13.4 g/dL (11.5-16.0); IMMATURE GRAN ABSOLUTE AUTO 0.09 K/mm3 (0.00-0.10); IMMATURE GRAN PERCENT AUTO 1 % (0-1); LYMPHOCYTES ABSOLUTE AUTO 2.61 K/mm3 (0.84-5.20); LYMPHOCYTES PERCENT AUTO 14 % (21-46); MONOCYTES ABSOLUTE AUTO 1.67 K/mm3 (0.16-1.47); MONOCYTES PERCENT AUTO 9 % (4-13); Mean Corpuscular HGB 26.6 pg (26.0-34.0); Mean Corpuscular HGB Conc 30.2 g/dL (31.5-36.5); Mean Corpuscular Volume 88 fL (80-100); Mean Platelet Volume 10.4 fL (9.1-12.4); NEUTROPHILS ABSOLUTE AUTO 14.15 K/mm3 (1.96-9.15); NEUTROPHILS PERCENT AUTO 76 % (41-73); Platelet Count 324 K/mm3 (150-400); RDW Coefficient Variation 14.6 % (11.7-14.2); RDW Standard Deviation 46.9 fL (35.1-46.3); Red Blood Cell Count 5.03 M/mm3 (3.80-5.20); White Blood Cell Count 18.57 K/mm3 (4.00-11.30)
[2024-10-01 05:30] LABS: Albumin, Blood 2.7 g/dL (3.4-5.0); Albumin/Globulin Ratio 0.7 (0.8-1.8); Bilirubin, Total 0.5 mg/dL (0.1-1.0); Bun/Creatinine Ratio 42.7 (12.0-20.0); Calcium, Blood 8.6 mg/dL (8.5-10.1); Creatinine, Blood 1.1 mg/dL (0.40-1.00); Globulin, Blood 3.8 g/dL (2.2-4.0); Potassium, Blood 3.8 mmol/L (3.5-5.5); Total Protein, Blood 6.5 g/dL (6.4-8.2)
[2024-10-01 07:58] VITALS: BP 145/75
[2024-10-01] MEDS ORDERED: MethylPREDNISolone Sod Succ 125 MG Vial IV SCH (09:00)
[2024-10-01] MEDS ORDERED: PredniSONE 20 MG Tab PO SCH (09:00)
[2024-10-01 15:31] LABS: Adenovirus Not Detected (NOT DETECT); Bordetella pertussis Not Detected (NOT DETECT); Chlamydophila pneumoniae Not Detected (NOT DETECT); Coronavirus 229E Not Detected (NOT DETECT); Coronavirus HKU1 Not Detected (NOT DETECT); Coronavirus NL63 Not Detected (NOT DETECT); Coronavirus OC43 Not Detected (NOT DETECT); Human Metapneumovirus Not Detected (NOT DETECT); Human Rhinovirus/Enterovirus Not Detected (NOT DETECT); Influenza A/2009-H1 Not Detected (NOT DETECT); Influenza A/H1 Not Detected (NOT DETECT); Influenza A/H3 Not Detected (NOT DETECT); Influenza B Not Detected (NOT DETECT); Mycoplasma pneumoniae Not Detected (NOT DETECT); Parainfluenza Virus 1 Not Detected (NOT DETECT); Parainfluenza Virus 2 Not Detected (NOT DETECT); Parainfluenza Virus 3 Not Detected (NOT DETECT); Parainfluenza Virus 4 Not Detected (NOT DETECT); Respiratory Syncytial Virus Not Detected (NOT DETECT); SARS-Cov-2 (COVID-19), BioFire Not Detected (NOT DETECT)
[2024-10-01 15:38] VITALS: BP 142/69
[2024-10-01] MEDS ORDERED: Amoxicillin/Clavulanate K 875 MG Tab PO SCH (17:00)
[2024-10-01] MEDS ORDERED: Carvedilol 3.125 MG Tab PO SCH (17:05)
--- NOTE | 2024-10-01 17:58 | NUR ---
SHIFT SUMMARY PT AOX3, SBA TO THE BR USING FWW. MEDICATED FOR PAIN PER THE EMAR. PT CALLS AND MAKES HER NEEDS KNOWN. NO ACUTE ISSUES THIS SHIFT. PT REPOSITIONS SELF IN BED. NO EVENTS PER TELE. REMAINS ON 4.5-5L, ATTEMPTED TO TITRATE THIS AM BUT HAD TO INCREASE IT AGAIN SLIGHTLY. FAMILY AT THE BS THIS SHIFT. CALL LIGHT WITHIN REACH, BED LOCKED AND IN THE LOWEST POSITION. WILL REPORT TO ONCOMING NURSE.
[2024-10-01 20:28] VITALS: BP 149/73
[2024-10-02 05:55] VITALS: BP 156/85
[2024-10-02 06:18] LABS: BASOPHILS ABSOLUTE AUTO 0.02 K/mm3 (0.00-0.23); BASOPHILS PERCENT AUTO 0 % (0-2); EOSINOPHILS ABSOLUTE AUTO 0.16 K/mm3 (0.00-0.68); EOSINOPHILS PERCENT AUTO 1 % (0-6); Hematocrit 45.5 % (33.0-51.0); Hemoglobin 13.4 g/dL (11.5-16.0); IMMATURE GRAN ABSOLUTE AUTO 0.09 K/mm3 (0.00-0.10); IMMATURE GRAN PERCENT AUTO 1 % (0-1); LYMPHOCYTES ABSOLUTE AUTO 2.71 K/mm3 (0.84-5.20); LYMPHOCYTES PERCENT AUTO 16 % (21-46); MONOCYTES ABSOLUTE AUTO 1.42 K/mm3 (0.16-1.47); MONOCYTES PERCENT AUTO 8 % (4-13); Mean Corpuscular HGB 26.4 pg (26.0-34.0); Mean Corpuscular HGB Conc 29.5 g/dL (31.5-36.5); Mean Corpuscular Volume 90 fL (80-100); Mean Platelet Volume 10.7 fL (9.1-12.4); NEUTROPHILS ABSOLUTE AUTO 12.42 K/mm3 (1.96-9.15); NEUTROPHILS PERCENT AUTO 74 % (41-73); Platelet Count 334 K/mm3 (150-400); RDW Coefficient Variation 14.7 % (11.7-14.2); RDW Standard Deviation 48.2 fL (35.1-46.3); Red Blood Cell Count 5.08 M/mm3 (3.80-5.20); White Blood Cell Count 16.82 K/mm3 (4.00-11.30)
[2024-10-02 06:37] LABS: Albumin, Blood 2.7 g/dL (3.4-5.0); Albumin/Globulin Ratio 0.7 (0.8-1.8); Bilirubin, Total 0.3 mg/dL (0.1-1.0); Bun/Creatinine Ratio 35.6 (12.0-20.0); Calcium, Blood 8.6 mg/dL (8.5-10.1); Creatinine, Blood 1.04 mg/dL (0.40-1.00); Globulin, Blood 3.8 g/dL (2.2-4.0); Potassium, Blood 4.1 mmol/L (3.5-5.5); Total Protein, Blood 6.5 g/dL (6.4-8.2)
[2024-10-02 07:52] VITALS: BP 138/74
[2024-10-02 16:49] VITALS: BP 136/62
--- NOTE | 2024-10-02 17:43 | NUR ---
SHIFT SUMMARY PT AOX4, SBA/INDEPENDENT IN THE ROOM. CALLS AND MAKES HER NEEDS KNOWN. NO ACUTE COMPLAINTS THIS SHIFT, PT APPEARS OVERALL BETTER THAN YESTERDAY. SHE IS MUCH MORE JOVIAL. REPOSITIONS SELF IN BED, UP TO THE CHAIR THIS AM. FWW TO THE BR, SHE IS CONTINENT. FAMILY AT THE BS THIS SHIFT. NO EVENTS PER TELE. CALL LIGHT WITHIN REACH, BED LOCKED AND IN THE LOWEST POSITION. WILL REPORT TO ONCOMING NURSE.
[2024-10-02 20:07] VITALS: BP 143/74
[2024-10-03 00:29] VITALS: BP 126/81
[2024-10-03 05:27] LABS: BASOPHILS ABSOLUTE AUTO 0.01 K/mm3 (0.00-0.23); BASOPHILS PERCENT AUTO 0 % (0-2); EOSINOPHILS ABSOLUTE AUTO 0.16 K/mm3 (0.00-0.68); EOSINOPHILS PERCENT AUTO 1 % (0-6); Hematocrit 42.2 % (33.0-51.0); Hemoglobin 12.7 g/dL (11.5-16.0); IMMATURE GRAN ABSOLUTE AUTO 0.06 K/mm3 (0.00-0.10); IMMATURE GRAN PERCENT AUTO 1 % (0-1); LYMPHOCYTES ABSOLUTE AUTO 2.44 K/mm3 (0.84-5.20); LYMPHOCYTES PERCENT AUTO 19 % (21-46); MONOCYTES ABSOLUTE AUTO 1.06 K/mm3 (0.16-1.47); MONOCYTES PERCENT AUTO 8 % (4-13); Mean Corpuscular HGB 26.8 pg (26.0-34.0); Mean Corpuscular HGB Conc 30.1 g/dL (31.5-36.5); Mean Corpuscular Volume 89 fL (80-100); Mean Platelet Volume 10.2 fL (9.1-12.4); NEUTROPHILS ABSOLUTE AUTO 9.44 K/mm3 (1.96-9.15); NEUTROPHILS PERCENT AUTO 72 % (41-73); Platelet Count 279 K/mm3 (150-400); RDW Coefficient Variation 14.5 % (11.7-14.2); RDW Standard Deviation 47.3 fL (35.1-46.3); Red Blood Cell Count 4.74 M/mm3 (3.80-5.20); White Blood Cell Count 13.17 K/mm3 (4.00-11.30)
[2024-10-03 05:52] LABS: Albumin, Blood 2.5 g/dL (3.4-5.0); Albumin/Globulin Ratio 0.8 (0.8-1.8); Bilirubin, Total 0.3 mg/dL (0.1-1.0); Bun/Creatinine Ratio 31.9 (12.0-20.0); Calcium, Blood 8.5 mg/dL (8.5-10.1); Creatinine, Blood 0.94 mg/dL (0.40-1.00); Globulin, Blood 3.3 g/dL (2.2-4.0); Potassium, Blood 3.9 mmol/L (3.5-5.5); Total Protein, Blood 5.8 g/dL (6.4-8.2)
[2024-10-03 07:22] VITALS: BP 139/76
[2024-10-03 09:31] VITALS: BP 138/63
--- NOTE | 2024-10-03 10:50 | NUR ---
SPOKE TO DR ELAM- PT RECIEVED 10MG BUSBAR ON AM MED PASS. DR CASSIDY, ORDER TO ONLY GIVE 5MG ON THE NEXT DOSE
[2024-10-03 14:56] VITALS: BP 113/57
[2024-10-03 18:34] VITALS: BP 125/57
--- NOTE | 2024-10-03 18:44 | NUR ---
SHIFT SUMMARY- PT ALERT AND ORIENTED. SHE WAS UP AND WALKING WITH THERAPY AND AGINA WITH RT FOR HOME O2 EVAL. ABOUT MID DAY SHE BECAME VERY TIRED AND WANTED TO TAKE A NAP. THIS EVENING SHE SAID SHE THINKS SHE OVERDID IT TODAY. PLAN IS FOR DC TOMORROW. SPOKE TO ABOUT THE BUSBAR DOSE THIS AM AND PER DR ELAM OK TO GIVE THE 7.5MG DOSE OF BUSBAR THIS EVENING SCHEDULED, PREVIOUSLY THE PLAN WAS TO REDUCE THE NEXT DOSE TO 5MG, SINCE THE MED IS BID (NOT TID) THE PLAN CHANGED. PT IS CURRENTLY IN BED. CALL LIGHT IN REACH MOTHER AT THE BEDSIDE. NO S&S OF DISTRESS NOTED.
[2024-10-03 19:54] VITALS: BP 130/59
[2024-10-04 00:01] VITALS: BP 119/60
[2024-10-04 04:18] VITALS: BP 156/76
--- NOTE | 2024-10-04 06:41 | NUR ---
SHIFT SUMMARY: Pt is admitted for acute on chronic hypoxic respiratory failure and is a full code. Is alert and able to make needs known. ADLs have been SBA. denies pain or discomfort when asked. On 3lpm o2 via NC.
--- NOTE | 2024-10-04 06:44 | NUR ---
SHIFT SUMMARY: Pt admitted for COPD exacerbation and is a full code. is alert and able to make needs known. ADLs have been SBA. denies pain or discomfort when asked. Telly reports sinus in the 60s with no events. On 1lpm via NC.
[2024-10-04 07:28] VITALS: BP 141/70
[2024-10-04 08:42] VITALS: BP 140/77
[2024-10-04] MEDS ORDERED: ALBU2.5V5 INH (11:46)
[2024-10-04] MEDS ORDERED: CARV3.125 PO (11:46)
[2024-10-04] MEDS ORDERED: METF500 PO (11:46)
[2024-10-04] MEDS ORDERED: AMOCLA875 PO (11:46)
[2024-10-04] MEDS ORDERED: IPRATROPIUM BRO30 ML (11:47)
[2024-10-04] MEDS ORDERED: LOSA50 PO (11:48)
[2024-10-04] MEDS ORDERED: MELATONIN5 M1 PO (11:48)
[2024-10-04] MEDS ORDERED: VISBIOME 112.51 EACH PO (11:49)
[2024-10-04] MEDS ORDERED: MICONAZOLE NIT130 GM TOP (11:49)
--- NOTE | 2024-10-04 15:37 | NUR ---
DISCHARGE NOTE- PT AND FAMILY WERE PROVIDED VERBAL AND WRITTEN DISCHARGE INSTRUCTIONS AND ACKNOWLEDGED UNDERSATANDING OF THEM. PORTABLE O2 WAS DELIVERED BY [facility], SARI AND PG WERE DC'D WELL TELE PRIOR TO DISCHARGE. PT ESCORTED OUT VIA WC BY STAFF.
== END 2024-10-04 14:39 | disposition home health service (06) | DRG 291 ==
LOC: ER 23:28 → ERHOLD 09-24 03:11 → MEDS 09-24 03:11 → PCU 09-24 03:11 → MEDS 09-27 17:43 → ENPENDDIS 10-04 13:03 → MEDS 10-04 14:39
PROVIDERS: Family Medicine; Internal Medicine; Student in an Organized Health Care Education/Training Program; ADMIT Internal Medicine
PROC: 5A09357 Assistance with Respiratory Ventilation, Less than 24 Consecutive Hours, Continuous Positive Airway Pressure (ICD-10-PCS; principal; 2024-09-24)
PROC: 0T9B70Z Drainage of Bladder with Drainage Device, Via Natural or Artificial Opening (ICD-10-PCS; 2024-09-24)
PROC: 4A033R1 Measurement of Arterial Saturation, Peripheral, Percutaneous Approach (ICD-10-PCS; 2024-09-28)
DX: I13.0 Hypertensive heart and chronic kidney disease with heart failure and stage 1 through stage 4 chronic kidney disease, or unspecified chronic kidney disease (principal); I50.33 Acute on chronic diastolic (congestive) heart failure; J96.21 Acute and chronic respiratory failure with hypoxia; J96.22 Acute and chronic respiratory failure with hypercapnia; J44.1 Chronic obstructive pulmonary disease with (acute) exacerbation; E87.4 Mixed disorder of acid-base balance; E66.2 Morbid (severe) obesity with alveolar hypoventilation; Z68.44 Body mass index [BMI] 60.0-69.9, adult; N18.31 Chronic kidney disease, stage 3a; F41.1 Generalized anxiety disorder; F15.90 Other stimulant use, unspecified, uncomplicated; E11.22 Type 2 diabetes mellitus with diabetic chronic kidney disease; E87.79 Other fluid overload; N61.0 Mastitis without abscess; Z90.49 Acquired absence of other specified parts of digestive tract; Z98.890 Other specified postprocedural states; Z88.2 Allergy status to sulfonamides; Z88.8 Allergy status to other drugs, medicaments and biological substances; Z79.899 Other long term (current) drug therapy; Z71.51 Drug abuse counseling and surveillance of drug abuser; Z79.84 Long term (current) use of oral hypoglycemic drugs; Z86.73 Personal history of transient ischemic attack (TIA), and cerebral infarction without residual deficits; Z90.89 Acquired absence of other organs
CPT/HCPCS: 0202U; 0241U; 36415; 36600; 71045; 71260; 80048; 80053; 80069; 81001; 82803; 82947; 83735; 83880; 84145; 84484; 85025; 85027; 86140; 93005; 93010; 94640; 94644; 94660; 94664; 94760; 94761; 94762; 97110; 97116; 97162; 97530; 99285-25; A9270; C1751; J0456; J0696; J1650; J1815; J2919; J7030; J7050; J7512; Q9967

== ENCOUNTER → 2024-11-28 | Outpatient (CLI) | payer OTHER ==
[~2024-11-28] MED LIST changes: +ALBU2.5V5 INH; +AMOCLA875 PO; +CARV3.125 PO; +CIPR500 PO; +Diflucan150 MG PO; +IPRATROPIUM BRO30 ML; +MELATONIN5 M1 PO; +METF500 PO; +MICONAZOLE NIT130 GM TOP; +NYAMYC15 G1 TOP; +NYSTATIN15 GM TOP; +SPIR50 PO; +STEGLATRO15 MG PO; +VISBIOME 112.51 EACH PO
[2024-11-28 18:56] LABS: BASOPHILS ABSOLUTE AUTO 0.03 K/mm3 (0.00-0.23); BASOPHILS PERCENT AUTO 0 % (0-2); EOSINOPHILS ABSOLUTE AUTO 0.27 K/mm3 (0.00-0.68); EOSINOPHILS PERCENT AUTO 2 % (0-6); Hematocrit 47.9 % (33.0-51.0); Hemoglobin 13.9 g/dL (11.5-16.0); IMMATURE GRAN ABSOLUTE AUTO 0.04 K/mm3 (0.00-0.10); IMMATURE GRAN PERCENT AUTO 0 % (0-1); LYMPHOCYTES ABSOLUTE AUTO 1.87 K/mm3 (0.84-5.20); LYMPHOCYTES PERCENT AUTO 15 % (21-46); MONOCYTES ABSOLUTE AUTO 0.74 K/mm3 (0.16-1.47); MONOCYTES PERCENT AUTO 6 % (4-13); Mean Corpuscular HGB 27.1 pg (26.0-34.0); Mean Corpuscular Volume 93 fL (80-100); Mean Platelet Volume 10.2 fL (9.1-12.4); NEUTROPHILS ABSOLUTE AUTO 9.39 K/mm3 (1.96-9.15); NEUTROPHILS PERCENT AUTO 76 % (41-73); Platelet Count 293 K/mm3 (150-400); RDW Coefficient Variation 15.7 % (11.7-14.2); RDW Standard Deviation 53.3 fL (35.1-46.3); Red Blood Cell Count 5.13 M/mm3 (3.80-5.20); White Blood Cell Count 12.34 K/mm3 (4.00-11.30)
[2024-11-28 19:08] LABS: Alanine Aminotransfer (ALT/SGP 18 U/L (12-78); Albumin, Blood 3.5 g/dL (3.4-5.0); Albumin/Globulin Ratio 0.9 (0.8-1.8); Alk Phos 122 U/L (50-136); Anion Gap 6 mmol/L (3-11); Aspartate Aminotrans (AST/SGOT 13 U/L (12-37); Bilirubin, Total 0.3 mg/dL (0.1-1.0); Blood Urea Nitrogen 20 mg/dL (8-24); Bun/Creatinine Ratio 24.1 (12.0-20.0); CHOL/HDL RATIO 3.8; CO2, Blood 40 mmol/L (21-32); Calcium, Blood 10.1 mg/dL (8.5-10.1); Chloride, Blood 97 mmol/L (98-108); Cholesterol 227 mg/dL (50-200); Creatinine, Blood 0.83 mg/dL (0.40-1.00); Globulin, Blood 4.1 g/dL (2.2-4.0); Glomerular Filtration Rate 83 (60-); Glucose, Blood 128 mg/dL (70-99); HDL Cholesterol 59 mg/dL (>39); LDL/HDL RATIO 2.1; Low Density Lipoprotein Chol 123 mg/dL (0-110); Potassium, Blood 4.4 mmol/L (3.5-5.5); Sodium, Blood 139 mmol/L (136-145); Total Protein, Blood 7.6 g/dL (6.4-8.2); Triglycerides 225 mg/dL (30-160); Very Low Density Lipoprot Chol 45 mg/dL (6-32)
[2024-11-28 20:42] LABS: Microalb/Creat Ratio UR, Rand 405.78 mg/g (0.000-30.000)
== END | disposition home or self-care (01) ==
LOC: LAB 17:27 → LAB SHORT 17:27
PROVIDERS: Family Medicine
DX: I12.9 Hypertensive chronic kidney disease with stage 1 through stage 4 chronic kidney disease, or unspecified chronic kidney disease (principal); E11.22 Type 2 diabetes mellitus with diabetic chronic kidney disease; N18.9 Chronic kidney disease, unspecified; E11.42 Type 2 diabetes mellitus with diabetic polyneuropathy
CPT/HCPCS: 80053; 80061; 82043; 82570; 85025

== ENCOUNTER 2024-12-01 01:05 | Inpatient (IN) | payer OTHER ==
[~2024-12-01] VITALS: Ht 160 cm; Wt 159.2 kg
[~2024-12-01 01:05] MED LIST changes: -CIPR500 PO
[2024-12-01] MEDS ORDERED: Ondansetron HCl 2 MG / ML 2ML Vial IV ONE ×2 (03:00→06:20)
[2024-12-01 04:04] LABS: Source, Urine Clean Catch
[2024-12-01 04:18] LABS: Appearance, Urine Cloudy (Clear); Bilirubin, Urine Neg (Neg); Blood, Urine 4+ (Neg); Color, Urine Yellow (P-Yellow); Glucose Qualitative, Urine 1+ (Neg); Ketones, Urine Neg (Neg); Leukocyte Esterase, Urine 3+ (Neg); Nitrite, Urine Pos (Neg); Protein, Urine 3+ (Neg); Specific Gravity, Urine 1.015 (1.003-1.022); Urobilinogen, Urine 1+ (Normal)
[2024-12-01 04:36] LABS: Red Blood Cells, Urine 50-100 /hpf (0-2); White Blood Cells, Urine 50-100 /hpf (0-5)
[2024-12-01 04:37] LABS: Bacteria Mod /hpf; Calcium Oxalate Crystals Mod /hpf; Squamous Epithelial Cells Mod /hpf (Few)
[2024-12-01] MEDS ORDERED: NS 1,000 ML IV SCH ×2 (05:55→08:50)
[2024-12-01] MEDS ORDERED: HYDROmorphone HCl/Pf 1MG SYR IV ONE (05:55)
[2024-12-01 06:27] LABS: BASOPHILS ABSOLUTE AUTO 0.03 K/mm3 (0.00-0.23); BASOPHILS PERCENT AUTO 0 % (0-2); EOSINOPHILS PERCENT AUTO 0 % (0-6); Hematocrit 42.6 % (33.0-51.0); Hemoglobin 13.1 g/dL (11.5-16.0); IMMATURE GRAN ABSOLUTE AUTO 0.16 K/mm3 (0.00-0.10); IMMATURE GRAN PERCENT AUTO 1 % (0-1); LYMPHOCYTES ABSOLUTE AUTO 0.91 K/mm3 (0.84-5.20); LYMPHOCYTES PERCENT AUTO 4 % (21-46); MONOCYTES ABSOLUTE AUTO 2.05 K/mm3 (0.16-1.47); MONOCYTES PERCENT AUTO 8 % (4-13); Mean Corpuscular HGB 27.3 pg (26.0-34.0); Mean Corpuscular HGB Conc 30.8 g/dL (31.5-36.5); Mean Corpuscular Volume 89 fL (80-100); NEUTROPHILS ABSOLUTE AUTO 22.93 K/mm3 (1.96-9.15); NEUTROPHILS PERCENT AUTO 88 % (41-73); Platelet Count 237 K/mm3 (150-400); RDW Coefficient Variation 15.4 % (11.7-14.2); RDW Standard Deviation 50.6 fL (35.1-46.3); Red Blood Cell Count 4.79 M/mm3 (3.80-5.20); White Blood Cell Count 26.08 K/mm3 (4.00-11.30)
[2024-12-01 06:45] LABS: Albumin, Blood 3.4 g/dL (3.4-5.0); Albumin/Globulin Ratio 0.8 (0.8-1.8); Bilirubin, Total 0.4 mg/dL (0.1-1.0); Bun/Creatinine Ratio 20.7 (12.0-20.0); Calcium, Blood 9.6 mg/dL (8.5-10.1); Creatinine, Blood 1.11 mg/dL (0.40-1.00); Potassium, Blood 4.1 mmol/L (3.5-5.5); Total Protein, Blood 7.4 g/dL (6.4-8.2)
[2024-12-01] MEDS ORDERED: CefTRIAXone Sodium 1,000 MG in NS 50 ML IV ONE (07:35)
[2024-12-01 08:18] LABS: Source, Urine Foley catheter
[2024-12-01 08:26] LABS: Appearance, Urine Cloudy (Clear); Bilirubin, Urine Neg (Neg); Blood, Urine 5+ (Neg); Color, Urine Yellow (P-Yellow); Glucose Qualitative, Urine Neg (Neg); Ketones, Urine Neg (Neg); Leukocyte Esterase, Urine 3+ (Neg); Nitrite, Urine Pos (Neg); Protein, Urine 3+ (Neg); Specific Gravity, Urine 1.005 (1.003-1.022); Urobilinogen, Urine NORM (Normal)
[2024-12-01] MEDS ORDERED: Acetaminophen 325 MG TABLET PO PRN (08:50)
[2024-12-01 08:51] LABS: Bacteria Mod /hpf; Squamous Epithelial Cells Rare /hpf (Few); White Blood Cells, Urine 25-50 /hpf (0-5)
[2024-12-01] MEDS ORDERED: Ipratropium/Albuterol SulF 2.5-0.5MG/3 ML Amp INH PRN (08:55)
[2024-12-01] MEDS ORDERED: Miconazole Nitrate 2% Talc Free PWD 71GM TOP SCH (09:00)
[2024-12-01] MEDS ORDERED: Carvedilol 3.125 MG Tab PO SCH (09:00)
[2024-12-01] MEDS ORDERED: Losartan Potassium 50 MG Tab PO SCH (09:00)
[2024-12-01] MEDS ORDERED: Insulin Glargine-Yfgn 100 Unit/mL 3 ML SYR SC SCH (09:00)
[2024-12-01] MEDS ORDERED: Lactobacil 2-S.Thermo-Bifido 1 1 Cap PO SCH (09:00)
[2024-12-01] MEDS ORDERED: CefTRIAXone Sodium 1,000 MG in NS 100 ML IV ONE (09:35)
[2024-12-01] MEDS ORDERED: Insulin Human Lispro 100 Units/ML 3ML Syringe SC SCH (11:30)
[2024-12-01 12:01] VITALS: BP 142/122
[2024-12-01] MEDS ORDERED: FentaNYL Citrate 50 MCG/ML 2 ML Injection IV PRN (13:00)
[2024-12-01] MEDS ORDERED: Ipratropium Bromide 0.03% Nasal Spray SCH (13:00)
[2024-12-01] MEDS ORDERED: Albuterol 2.5 MG/3 ML VIAL INH PRN (13:00)
[2024-12-01] MEDS ORDERED: HydrALAZINE HCl 20 MG / ML 1ML Vial IV PRN (13:05)
[2024-12-01 15:40] VITALS: BP 111/76
--- NOTE | 2024-12-01 17:02 | NUR ---
SHIFT SUMMARY PATIENT ARRIVED TO MEDICAL FLOOR FROM ED. SKIN INTACT. A/O X4, SPEECH SLOW, TAKES CONSIDERABLE EFFORT TO KEEP HER ALERT. ON 10 LITERS NC ON ARRIVAL, TITRATED DOWN TO 4, PULSE OX ON. CERVANTES IN PLACE, DRAINING BLOOD TINGED YELLOW URINE TO GRAVITY. REPORTS PAIN TO L FLANK, GIVEN APAP WITH LITTLE RELIEF. ABLE TO MAKE NEEDS KNOWN. CALL LIGHT IN REACH, CARES ONGOING.
[2024-12-01 20:04] VITALS: BP 97/55
[2024-12-01] MEDS ORDERED: Topiramate 100 MG Tab PO SCH (21:00)
[2024-12-01] MEDS ORDERED: Miconazole Nitrate 2% 85 GM PWD TOP SCH (21:00)
[2024-12-01] MEDS ORDERED: Melatonin 5 MG Tablet PO SCH (21:00)
[2024-12-01] MEDS ORDERED: Sennosides 8.6 MG Tab PO SCH (21:00)
[2024-12-01] MEDS ORDERED: BusPIRone HCl 5 MG Tab PO SCH (21:00)
--- NOTE | 2024-12-02 01:47 | NUR ---
SHIFT SUMMARY RESTING WELL,RESPONDS TO VERBAL STIMULI. MORE ALERT THAN AT ONSET OF SHIFT HOWEVER HS MEDS HELD DUE TO DROWSINESS AND DUE TO SEVERAL OF THEM HAVING SEDATING EFFECTS (DROWSY ALL DAY SINCE RECEIVING DILAUDID IN ED PER DAYSHIFT RN) ,DOES USE CALL LIGHT APPROPRIATELY AND VOICE NEEDS. ORIENTED HOWEVER FORGETFUL AT TIMES SUCH TO TIME AND FORGOT HAS A URINARY CATHETER ONCE. CERVANTES DRAING YELLOW URINE, SOME LIGHT HEMATURIA NOTED AT TIMES. SATS IN MID 90s/HR 70s FREQUENT MASK ADJUSTMENTS NEEDED, NO RESP DISTRESS, VSS.
[2024-12-02 05:15] VITALS: BP 112/66
[2024-12-02 05:21] LABS: BASOPHILS ABSOLUTE AUTO 0.04 K/mm3 (0.00-0.23); BASOPHILS PERCENT AUTO 0 % (0-2); EOSINOPHILS ABSOLUTE AUTO 0.15 K/mm3 (0.00-0.68); EOSINOPHILS PERCENT AUTO 1 % (0-6); Hematocrit 38.9 % (33.0-51.0); Hemoglobin 11.3 g/dL (11.5-16.0); IMMATURE GRAN ABSOLUTE AUTO 0.11 K/mm3 (0.00-0.10); IMMATURE GRAN PERCENT AUTO 1 % (0-1); LYMPHOCYTES ABSOLUTE AUTO 1.16 K/mm3 (0.84-5.20); LYMPHOCYTES PERCENT AUTO 5 % (21-46); MONOCYTES ABSOLUTE AUTO 1.42 K/mm3 (0.16-1.47); MONOCYTES PERCENT AUTO 7 % (4-13); Mean Corpuscular HGB 27.2 pg (26.0-34.0); Mean Platelet Volume 10.9 fL (9.1-12.4); NEUTROPHILS ABSOLUTE AUTO 18.63 K/mm3 (1.96-9.15); NEUTROPHILS PERCENT AUTO 87 % (41-73); Platelet Count 208 K/mm3 (150-400); RDW Coefficient Variation 16.5 % (11.7-14.2); RDW Standard Deviation 56.1 fL (35.1-46.3); Red Blood Cell Count 4.16 M/mm3 (3.80-5.20); White Blood Cell Count 21.51 K/mm3 (4.00-11.30)
[2024-12-02 05:31] LABS: Mean Corpuscular Volume 94 fL (80-100)
[2024-12-02 05:44] LABS: Bun/Creatinine Ratio 15.7 (12.0-20.0); Calcium, Blood 9.1 mg/dL (8.5-10.1); Creatinine, Blood 2.35 mg/dL (0.40-1.00); Potassium, Blood 4.3 mmol/L (3.5-5.5)
[2024-12-02 07:17] VITALS: BP 120/89
[2024-12-02] MEDS ORDERED: NS 500 ML IV STA (07:57)
[2024-12-02] MEDS ORDERED: NS 1,000 ML IV SCH (08:00)
[2024-12-02] MEDS ORDERED: HydroCHLOROthiazide 25 mg Tab PO SCH (09:00)
[2024-12-02] MEDS ORDERED: CefTRIAXone Sodium 2,000 MG in NS 100 ML IV SCH (09:00)
[2024-12-02] MEDS ORDERED: FLUoxetine HCL 20 MG CAP PO SCH (09:00)
[2024-12-02] MEDS ORDERED: Spironolactone 50 MG Tab PO SCH (09:00)
[2024-12-02] MEDS ORDERED: Enoxaparin 40 MG/0.4 ML SYR SC SCH (09:00)
[2024-12-02 13:20] LABS: Bun/Creatinine Ratio 20.1 (12.0-20.0); Calcium, Blood 8.7 mg/dL (8.5-10.1); Creatinine, Blood 1.79 mg/dL (0.40-1.00); Potassium, Blood 4.2 mmol/L (3.5-5.5)
[2024-12-02 16:02] VITALS: BP 136/95
--- NOTE | 2024-12-02 17:27 | NUR ---
SHIFT SUMMARY PATIENT IN BED THIS SHIFT. WEARING CPAP ON AND OFF. NOT ABLE TO TITRATE OXYGEN WITHOUT DESATING. C/O HEADACHE AND L FLANK PAIN, LOWER BACK PAIN. GIVEN APAP WITH MILD RELIEF. A/O X4. ABLE TO MAKE NEEDS KNOWN. ENCOURAGING FLUIDS, RECEIVED BOLUS. CERVANTES DRAINING YELLOW URINE WITH RIBBONS OF BLOOD, NO OBSTRUCTIONS.
--- NOTE | 2024-12-02 18:24 | NUR ---
CALLED DR ELAM FOR CHLOE ORDER, PATIENT HAVING SUDDEN NAUSEA, REPORTS INCREASED L FLANK PAIN.
[2024-12-02] MEDS ORDERED: Ondansetron 4 MG SoluTab SL PRN (18:25)
[2024-12-02 19:57] VITALS: BP 110/56
[2024-12-03 03:49] VITALS: BP 114/65
--- NOTE | 2024-12-03 04:12 | NUR ---
SHIFT SUMAMRY A&0X4, MAKES NEEDS KNOWN USING CALL LIGHT APPROPRIATELY. APPEARS RESTING WELL OVERNIGHT. NO ACUTE RESP DISTRESS HOWEVER VERY FATIGUED W/ ACTIVITY WEARS O2 AT 5L/M VIA NC ALT.W/BIPAP MANAGED BY RT / BLEED IN. CONTINUOUS OXIMETRY ONGOING WITH SATS IN UPPER 80s TO MID 90s & HR 60-80 CONSISTENTLY, FLUIDS ENCOURAGED W/A. CERVANTES DRAINING LG AMT YELLOW URINE, NO HEMATURIA NOTED. NO C/O FLANK PAIN VERBALIZED, DI C/O NAUSEA ONSET SHIFT AND RECEIBE=RAHAT PRN ZOFRAN WHICH REPORTED EFFECTIVE, HAS BEEN TOLERATING PO FLUIDS WELL. VSS/ AFEBRILE. 900 ML YELLOW URINE OUTPUT FROM 1900 TO 0400
[2024-12-03 07:49] VITALS: BP 139/75
[2024-12-03 11:14] LABS: BASOPHILS ABSOLUTE AUTO 0.01 K/mm3 (0.00-0.23); BASOPHILS PERCENT AUTO 0 % (0-2); EOSINOPHILS ABSOLUTE AUTO 0.27 K/mm3 (0.00-0.68); EOSINOPHILS PERCENT AUTO 2 % (0-6); Hematocrit 37.4 % (33.0-51.0); Hemoglobin 10.9 g/dL (11.5-16.0); IMMATURE GRAN ABSOLUTE AUTO 0.07 K/mm3 (0.00-0.10); IMMATURE GRAN PERCENT AUTO 1 % (0-1); LYMPHOCYTES ABSOLUTE AUTO 1.15 K/mm3 (0.84-5.20); LYMPHOCYTES PERCENT AUTO 10 % (21-46); MONOCYTES ABSOLUTE AUTO 1.21 K/mm3 (0.16-1.47); MONOCYTES PERCENT AUTO 10 % (4-13); Mean Corpuscular HGB Conc 29.1 g/dL (31.5-36.5); Mean Corpuscular Volume 93 fL (80-100); Mean Platelet Volume 11.1 fL (9.1-12.4); NEUTROPHILS ABSOLUTE AUTO 9.26 K/mm3 (1.96-9.15); NEUTROPHILS PERCENT AUTO 77 % (41-73); Platelet Count 201 K/mm3 (150-400); RDW Coefficient Variation 16.4 % (11.7-14.2); RDW Standard Deviation 55.8 fL (35.1-46.3); Red Blood Cell Count 4.03 M/mm3 (3.80-5.20); White Blood Cell Count 11.97 K/mm3 (4.00-11.30)
[2024-12-03 12:07] LABS: Albumin, Blood 2.3 g/dL (3.4-5.0); Anion Gap 6 mmol/L (3-11); Blood Urea Nitrogen 27 mg/dL (8-24); Bun/Creatinine Ratio 23.5 (12.0-20.0); CO2, Blood 37 mmol/L (21-32); Chloride, Blood 95 mmol/L (98-108); Creatinine, Blood 1.15 mg/dL (0.40-1.00); Glomerular Filtration Rate 56 (60-); Glucose, Blood 146 mg/dL (70-99); Phosphorus, Blood 2.1 mg/dL (2.5-4.9); Potassium, Blood 4.1 mmol/L (3.5-5.5); Sodium, Blood 134 mmol/L (136-145)
[2024-12-03] MEDS ORDERED: Potassium Phosphate Dibasic 30 MM in Dextrose 5% 500 ML IV STA (13:28)
[2024-12-03 15:48] VITALS: BP 129/61
[2024-12-03] MEDS ORDERED: NS 500 ML IV SCH (16:35)
--- NOTE | 2024-12-03 19:14 | NUR ---
SHIFT SUMMARY- PT ALERT AND ORIENTED, 1PA WITH THE FWW FOR TRANSFERS. PT CURRENTLY HAS KPHOS RUNNING CONCURRENTLY WITH NS TO PREVENT THE PAIN. AT ONE TIME THE NS STOPPED AND THE PT BEGAN CALLING OUT HER ARM WAS TOO PAINFULL TO TOLLERATE. STOPPED THE KPHOS AND FLUSHED THE LINE, PAIN WENT AWAY. PT HAS GRADUATED COMPRESSION STOCKINGS IN PLACE, THEY ARE TOO LONG AND ARE FOLDED DOWN A LITTLE AT THE TOP. THE STOCKINGS HAVE STARTED TO ROLL A COUPLE OF TIMES AND WERE ADJUSTED BY STAFF ON THE HOURLY ROUNDS. PT IS SITTING UP IN THE RECLINER AT THE TIME OF BEDSIDE REPORT. NO S&S OF DISTRESS NOTED STILL ON 5L O2 VIA NC.
[2024-12-03 19:44] VITALS: BP 117/67
[2024-12-04 04:09] VITALS: BP 133/82
[2024-12-04 05:25] LABS: Hemoglobin 11.1 g/dL (11.5-16.0); Mean Corpuscular HGB 27.3 pg (26.0-34.0); Mean Corpuscular HGB Conc 29.2 g/dL (31.5-36.5); Mean Corpuscular Volume 93 fL (80-100); Platelet Count 192 K/mm3 (150-400); RDW Coefficient Variation 16.4 % (11.7-14.2); RDW Standard Deviation 56.3 fL (35.1-46.3); Red Blood Cell Count 4.07 M/mm3 (3.80-5.20); White Blood Cell Count 10.46 K/mm3 (4.00-11.30)
[2024-12-04 05:40] LABS: Albumin, Blood 2.3 g/dL (3.4-5.0); Anion Gap 5 mmol/L (3-11); Blood Urea Nitrogen 23 mg/dL (8-24); Bun/Creatinine Ratio 22.8 (12.0-20.0); CO2, Blood 37 mmol/L (21-32); Chloride, Blood 99 mmol/L (98-108); Creatinine, Blood 1.01 mg/dL (0.40-1.00); Glomerular Filtration Rate 65 (60-); Glucose, Blood 142 mg/dL (70-99); Phosphorus, Blood 3.3 mg/dL (2.5-4.9); Potassium, Blood 4.2 mmol/L (3.5-5.5); Sodium, Blood 137 mmol/L (136-145)
[2024-12-04 07:02] VITALS: BP 136/101
[2024-12-04 07:53] VITALS: BP 146/79
[2024-12-04] MEDS ORDERED: Losartan Potassium 50 MG Tab PO SCH (09:00)
[2024-12-04] MEDS ORDERED: Spironolactone 50 MG Tab PO SCH (09:00)
[2024-12-04] MEDS ORDERED: CIPR500 PO (11:34)
--- NOTE | 2024-12-04 13:03 | NUR ---
PT O2 TITRATED DOWN TO 2L VIA NC- PT HAD TO USE THE BATHROOM; HOWEVER SHE DID NOT HAVE AN EXTENTION ON HER O2 LINE. PT REMOVED HER O2 AND RUSHED TO THE BATHROOM. ONCE SHE WAS SAFELY SEATED IN THE BATHRROOM THIS RN WENT TO GET AN EXTENTION. ONCE IT WAS RETRIEVED THE PT WAS PLACED BACK ON O2. SATS ON ROOM AIR AFTER BEING SEATED AT REST ON ROOM AIR (POST AMBULATION OF 25 FEET) WERE 90%. PT WAS PLACED BACK ON O2 AT 4L AND SATS INCREASED TO 96%. REDUCED TO HER HOME DOSE OF 2L VIA NC AND THE PT WAS ASSISTED WITH A SHOWER. AFTER THE SHOWER SHE AGAIN AMBULATED ABOUT 25 FEET BACK TO HER RECLINER O2 SATS 93% ON 2L VIA NC. SHE WAS BREATHING A LITTLE HARD AT FIRST BUT RECOVERED AND RELAXED SHE PREPARED FOR LUNCH. PT CURRENTLY SITTING UP IN THE RECLINER EATING LUNCH NO S&S OF DISTRESS NOTED.
--- NOTE | 2024-12-04 13:57 | NUR ---
SATS MAINTAINING ON 2L O2- PT SITTING UP IN THE RECLINER SHE STATES SHE IS NOT SURE SHE IS READY TO GO HOME. SPOKE TO DR MURRAY. PT HAS BEEN TITRATED DOWN TO 2L O2 VIA NC. SATS ARE 96% CERVANTES CATH WAS DC'D AND THE PT VOIDED AFTER THE CERVANTES WAS DC'D. PT SITTING UP IN THE RECLINER WITH NO S&S OF DISTRESS NOTED. MD AWARE. WE WILL CTM THE PT FOR A FEW MORE HOURS THEN SHE CAN GO HOME. PT AWARE. HER WILL COME GET HER AROUND 4PM.
== END 2024-12-04 17:14 | disposition home health service (06) | DRG 871 ==
LOC: ER 01:05 → ERHOLD 08:45 → MEDS 08:45
PROVIDERS: Emergency Medicine; ADMIT Internal Medicine
PROC: 3E03329 Introduction of Other Anti-infective into Peripheral Vein, Percutaneous Approach (ICD-10-PCS; principal; 2024-12-01)
PROC: 5A09357 Assistance with Respiratory Ventilation, Less than 24 Consecutive Hours, Continuous Positive Airway Pressure (ICD-10-PCS; 2024-12-01)
DX: A41.59 Other Gram-negative sepsis (principal); G92.8 Other toxic encephalopathy; J96.21 Acute and chronic respiratory failure with hypoxia; N10 Acute pyelonephritis; E87.20 Acidosis, unspecified; N17.9 Acute kidney failure, unspecified; E87.1 Hypo-osmolality and hyponatremia; I50.32 Chronic diastolic (congestive) heart failure; Z68.43 Body mass index [BMI] 50.0-59.9, adult; R65.20 Severe sepsis without septic shock; N20.0 Calculus of kidney; E83.39 Other disorders of phosphorus metabolism; T40.2X5A Adverse effect of other opioids, initial encounter; E11.9 Type 2 diabetes mellitus without complications; I11.0 Hypertensive heart disease with heart failure; F41.1 Generalized anxiety disorder; J44.89 Other specified chronic obstructive pulmonary disease; E66.01 Morbid (severe) obesity due to excess calories; G47.33 Obstructive sleep apnea (adult) (pediatric); G47.00 Insomnia, unspecified; I12.9 Hypertensive chronic kidney disease with stage 1 through stage 4 chronic kidney disease, or unspecified chronic kidney disease; E11.22 Type 2 diabetes mellitus with diabetic chronic kidney disease; N18.9 Chronic kidney disease, unspecified; E11.42 Type 2 diabetes mellitus with diabetic polyneuropathy; Z99.81 Dependence on supplemental oxygen; Z88.2 Allergy status to sulfonamides; Z88.8 Allergy status to other drugs, medicaments and biological substances; Z79.84 Long term (current) use of oral hypoglycemic drugs
CPT/HCPCS: 36415; 51702; 74177; 76770; 80048; 80053; 80061; 80069; 81001; 82043; 82570; 82947; 83605; 83880; 85025; 85027; 87040; 87077; 87086; 87147; 87186; 94660; 94761; 94762; 96365-59; 96375-59; 97110; 97112; 97116; 97161; 97165; 97530; 99285-25; A9270; J0696; J1171; J1650; J1815; J2405; J7030; J7040; J7060; Q9967

== ENCOUNTER → 2025-06-12 | Outpatient (CLI) | payer OTHER | LOC: LAB 17:45 | DX: Z11.4 Encounter for screening for human immunodeficiency virus [HIV] (principal); Z11.59 Encounter for screening for other viral diseases; I13.0 Hypertensive heart and chronic kidney disease with heart failure and stage 1 through stage 4 chronic kidney disease, or unspecified chronic kidney disease; I50.32 Chronic diastolic (congestive) heart failure ==